=== PATIENT | female | born 1935 | race African-American/Black ===

== ENCOUNTER 2017-11-14 12:10 | Observation (INO) | payer BC, OTHER ==
--- NOTE | 2017-11-14 13:27 | PDOC ---
History of Present Illness - General Chief Complaint: Rectal Bleed Stated Complaint: RECTAL BLEEDING Time Seen by Provider: 11/14/17 12:36 - History of Present Illness Initial Comments: 11/14/17 13:25 Pt is a pleasant 82 y/o lady with a significant past medical of colon cancer, melanoma of her left foot, TIA (April) and HTN who presents this afternoon to [facility] c/o BRBPR that has been present since yesterday evening. Pt endorses 5 episodes of bloody stool along with clots. Pt states that she underwent a right hemicolectomy 4 years ago for colon cancer and underwent a colonoscopy approximately 3 years ago which was normal. Denies chest pain, shortness of breath, dizziness, vomiting, or headache. PMD Dr rAias ([place] NKDA FH- Mother CVA/HTN PSurgHx- Right Hemicolectomy (2013), Tubal ligation, appendectomy, Melanoma removal Social Hx- Denies Tobacco, Alcohol use. Past History - Past Medical History Allergies/Adverse Reactions: Allergies Allergy/AdvReac Type Severity Reaction Status Date / Time No Known Allergies Allergy Verified 11/14/17 12:21 Home Medications: Ambulatory Orders Metoprolol Succinate 50 mg PO DAILY 05/08/15 Aspirin [ASA -] 81 mg PO DAILY 05/09/17 Amlodipine Besylate 10 mg PO DAILY 11/14/17 Losartan/Hydrochlorothiazide [Hyzaar 100-12.5 Tablet] 1 tab PO DAILY 11/14/17 Anemia: No Asthma: No Cancer: Yes ([place], LEFT FOOT MELANOMA) Cardiac Disorders: Yes (HEART MURMUR) CVA: No COPD: No CHF: No Dementia: No Diabetes: No GI Disorders: No Disorders: No HTN: Yes Hypercholesterolemia: Yes Liver Disease: No Seizures: No Thyroid Disease: No - Surgical History Abdominal Surgery: Yes (HEMICOLECTOMY) Appendectomy: No Cardiac Surgery: No Cholecystectomy: No Lung Surgery: No Neurologic Surgery: No Orthopedic Surgery: Yes (LEFT WRIST FX) - Immunization History Immunization Up to Date: Yes - Suicide/Smoking/Psychosocial Hx Smoking Status: No Smoking History: Never smoked Years of Tobacco Use: 0 Have you smoked in the past 12 months: No Number of Cigarettes Smoked Daily: 0 Cigars Per Day: 0 Hx Alcohol Use: No Drug/Substance Use Hx: No Substance Use Type: None Hx Substance Use Treatment: No Review of Systems - Review of Systems Able to Perform ROS?: Yes Is the patient limited Tajik proficient: No Constitutional: No: Symptoms Reported, See HPI, Chills, Diaphoresis, Fever, Loss of Appetite, Malaise, Night Sweats, Weakness, Weight Stable, Unintentional Wgt. Loss, Unexplained wgt Loss, Other ABD/GI: Yes: Blood Streaked Bowels, Rectal Bleeding : No: Symptoms Reported, See HPI, Burning, Dysuria, Discharge, Frequency, Flank Pain, Hematuria, Incontinence, Pain, Urgency, Testicular Mass, Testicular Swelling, Lesions, Testicular Pain, Other Musculoskeletal: No: Symptoms Reported, See HPI, Back Pain, Gout, Joint Pain, Joint Swelling, Muscle Pain, Muscle Weakness, Neck Pain, Joint Stiffness, Other Integumentary: No: Symptoms Reported, See HPI, Bruising, Change in Color, Change in Hair/Nails, Dryness, Erythema, Flushing, Lesions, Lumps, Pallor, Pruritus, Rash, Sweating, Other Neurological: No: Symptoms reported, See HPI, Headache, Numbness, Paresthesia, Pre-Existing Deficit, Seizure, Tingling, Tremors, Weakness, Unsteady Gait, Ataxia, Dizziness, Other Psychiatric: No: Anxiety, Depression, Frequent Crying, Stressors, Sleep Pattern Change, Emotional Problems, Mood Swings, Change in Appetite, Other Endocrine: No: Symptoms Reported, See HPI, Excessive Sweating, Flushing, Intolerance to Cold, Intolerance to Heat, Increased Hunger, Increased Thirst, Increased Urine, Unexplained Weight Gain, Unexplained Weight Loss, Change in Weight, Other Hematologic/Lymphatic: No: Symptoms Reported, See HPI, Anemia, Blood Clots, Easy Bleeding, Easy Bruising, Bleeding Diathesis, Lymph Node Abnormalities, Swollen Glands, Other *Physical Exam - Vital Signs Last Vital Signs Temp Pulse Resp BP Pulse Ox 98.8 F 98 H 18 127/81 99 11/14/17 12:17 11/14/17 12:17 11/14/17 12:17 11/14/17 12:17 11/14/17 12:17 - Physical Exam General Appearance: Yes: Appropriately Dressed, Apparent Distress HEENT: positive: EOMI, NICOLAS, Pale Conjunctivae Neck: positive: Supple Respiratory/Chest: positive: Lungs Clear, Normal Breath Sounds Cardiovascular: positive: Regular Rhythm, Regular Rate, S1, S2 Gastrointestinal/Abdominal: positive: Normal Bowel Sounds, Soft Rectal Exam: positive: heme positive stool (gross blood seen around anus, stool occult sample sent to lab) Integumentary: positive: Pale Neurologic: positive: pastoral assistant II-XII NML intact, Fully Oriented, Alert, Normal Mood/ Affect, Normal Response, Motor Strength 06/28 ED Treatment Course - LABORATORY CBC & Chemistry Diagram: 11/14/17 17:23 11/14/17 13:35 Medical Decision Making - Medical Decision Making 11/14/17 14:10 CBC w/ diff, CMP, Carcinoembryonic Antigen, PT/INR, PTT, Stool occult pending Rectal exam performed by me, dry blood seen around anus and rectum 11/14/17 16:18 Spoke with Semaj, will admit to telemetry. 11/14/17 17:11 Repeat CBC will be done at 6 pm. *DC/Admit/Observation/Transfer Diagnosis at time of Disposition: Rectal bleeding - Referrals - Patient Instructions - Post Discharge Activity
--- NOTE | 2017-11-14 13:48 | PDOC ---
Attending Attestation - Resident Resident Name: Cral Kay - ED Attending Attestation I have performed the following: I have examined & evaluated the patient, The case was reviewed & discussed with the resident, I agree w/resident's findings & plan, Exceptions are as noted - HPI HPI: 11/14/17 13:46 82y F hx of colon ca s/p hemicolectomy, TIA (04/2017), melenoma presents with BRBPR since last night. Pt states that she had approximate 5 episodes of soft brown stool with mixed with blood and blood clots. The patient notes her last episode was right when she got to the ED. Patient endorses 1 episode of lightheadedness during bowel movement last night. She denies any abdominal pain , nausea, vomiting, chest pain, palpitations, current lightheadedness. The patient's had a colonoscopy approximately 1 year ago and endorses having + diverticulosis. pt on baby aspirin GI: Dr. pérez GENERAL: The patient is awake, alert, and fully oriented, Nontoxic - in no acute distress. HEAD: Normocephalic, atraumatic. EYES: extraocular movements intact, sclera anicteric, conjunctiva clear. ENT: Normal voice, Moist mucous membranes. NECK: Normal range of motion, supple LUNGS: Breath sounds equal, clear to auscultation bilaterally. No wheezes, no rhonchi, no rales. HEART: Regular rate and rhythm, normal S1 and S2 without murmur, rub or gallop. ABDOMEN: Soft, nontender, No guarding, no rebound. No CVA tenderness EXTREMITIES: Normal range of motion, no edema. NEUROLOGICAL: No facial assymetry, Normal speech, PSYCH: Normal mood, normal affect. SKIN: Warm, Dry, normal turgor,
[2017-11-14 14:06] LABS: BASO % 0.3 % (0-2.0); EOS % 0.7 % (0-4.5); HEMATOCRIT 36.5 % (32.4-45.2); HEMOGLOBIN 12.3 GM/dL (10.7-15.3); LYMPH % 14.5 % (8-40); MCH 30.3 pg (25.7-33.7); MCHC 33.5 g/dl (32.0-36.0); MEAN CELL VOLUME 90.4 fl (80-96); MONO % 6.1 % (3.8-10.2); NEUT % 78.4 % (42.8-82.8); PLATELET COUNT 213 K/MM3 (134-434); RBC 4.04 M/mm3 (3.60-5.2); RDW 14.7 % (11.6-15.6); WHITE BLOOD COUNT 7.8 K/mm3 (4.0-10.0)
[2017-11-14 15:33] LABS: ALBUMIN 3.7 g/dl (3.4-5.0); ALK PHOS 90 U/L (45-117); ANION GAP 7 MMOL/L (8-16); BILIRUBIN,TOTAL 0.7 mg/dL (0.2-1); BLOOD UREA NITROGEN 21 mg/dL (7-18); CALCIUM 9.8 mg/dL (8.5-10.1); CHLORIDE 110 mmol/L (98-107); CO2 27 mmol/L (21-32); GLUCOSE,RANDOM 65 mg/dL (74-106); POTASSIUM 4.1 mmol/L (3.5-5.1); SGOT/AST 15 U/L (15-37); SGPT/ALT 12 U/L (13-61); SODIUM 145 mmol/L (136-145); TOT PROT 6.8 g/dl (6.4-8.2)
[2017-11-14 16:19] LABS: INR 1.14 (0.83-1.09); PROTHROMBIN TIME (PATIENT) 12.9 SEC (9.7-13.0)
[2017-11-14 16:22] LABS: ACTIVATED PTT 26.8 SECONDS (25.2-36.5)
--- NOTE | 2017-11-14 17:26 | CON.GI ---
Consult Consult Specialty:: GI Referred by:: Hospitalist service Reason for Consultation:: Rectal bleeding - History of Present Illness Chief Complaint: Rectal bleeding History of Present Illness: The patient is an 82 year old female admitted through [facility] ER for evaluation of rectal bleeding. Ms. Santacruz states that she was in her USOH up until last night , when she began experiencing episodes of rectal bleeding through the night. She described the bleeding to be bright red initially and believes that she also passed clots. Her last active bloody bowel movement was around 10-11 AM this morning, which she describes as forceful. It was associated with lightheadedness as well. She live in [facility] but decided to have her daughter in law drive her to [facility]. Triage vitals revealed T: 98 P: 98 BP: /127/ 81. She does take metroporlol and her usual SBP is in the 160's-170's, higher at times. Along with the rectal bleeding, she denied associated nausea, vomiting, abdominal pain, fevers/chills, antecedent change in bowel habits. There has been no overt bleeding since the morning. Ms. Santacruz has a history of colon cancer. 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 She subsequently underwent right hemicolectomy 04/29/13. 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 The stage was pT1N0 (out of 26)M: N/A. She underwent surveillance colonoscopy performed by myself 05/09/15 that revealed a good bowel prep, mild diverticulosis of the distal colon, moderate diverticulosis of the proximal colon and a patent ileocolonic surgical anatamosisin the proximal half of the colon. Biopsies of the anastamosis were unrevealing and the neoterminal ileum appeared normal. Small internal hemorrhoids were noted as well and a 3 year follow-up exam was advised. She also underwent endoscopic ultrasound around that time performed by Dr. Nadia Amaya for evaluation of small submucosal fundic nodules seen on prior upper endoscopy. I do not have the records regarding this as that was when I was working in my old office. Ms. Santacruz does tell me that she was told " everything was ok" and that she had a hiatal hernia. She was on Plavix along with ASA 81mg once daily from 3/18-08/11 secondary to TIA however is now maintained on just ASA 81mg once daily. 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 currently on ASA 81mg once daily) Cardio/Vascular: Yes: HTN Dermatology: Yes: Melanoma (? left foot) - Past Surgical History Additional Surgical History: Thymus gland removal (benign), breast biopy (benign ), uterine prolapse repair, left wrist fracture, BTL, excision of melanoma on ? 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 Place of : [facility] History of Recent Travel: No Home Medications - Allergies Allergies/Adverse Reactions: Allergies Allergy/AdvReac Type Severity Reaction Status Date / Time No Known Allergies Allergy Verified 11/14/17 12:21 - Home Medications Home Medications: Ambulatory Orders Metoprolol Succinate 100 mg PO DAILY 05/08/15 Aspirin [ASA -] 81 mg PO DAILY 05/09/17 Amlodipine Besylate 10 mg PO DAILY 11/14/17 Losartan Potassium 0 mg PO DAILY 11/14/17 Family Disease History - Family Disease History Family Disease History: Other: Father ( 61: COPD), Mother (: 72: CVA / HTN), Brother (1, : Liver cancer (was an alcoholic)), Sister (1, , HCV cirrhosis), Son (1, healthy), Daughter (1, healthy) Other Family History: No family history of colorectal cancer or other GI malignancy Review of Systems - Review of Systems Constitutional: denies: Chills, Unintentional Wgt. Loss Cardiovascular: denies: Chest Pain Respiratory: denies: SOB Gastrointestinal: reports: Rectal Bleeding. denies: Abdominal Pain, Bloating, Constipation, Diarrhea, Dysphagia, Indigestion, Melena, Vomiting, Vomiting Blood Physical Exam-GI Vital Signs: Vital Signs at Bedside Temperature Not taken 11/14/17 16:45 Pulse Rate 63 11/14/17 16:45 Respiratory Rate 18 11/14/17 16:45 Blood Pressure 143/70 11/14/17 16:45 O2 Sat by Pulse Oximetry (%) 99 11/14/17 16:45 Constitutional: Yes: No Distress, Calm Eyes: Yes: Other (+ arcus senilis). No: Sclera Icterus Cardiovascular: Yes: Regular Rate and Rhythm, Murmur (faint systolic murmur at the LSB) Respiratory: Yes: CTA Bilaterally Gastrointestinal Inspection: Yes: Scars (+ pelvic surgical scar). No: Distention ...Auscultate: Yes: Normoactive Bowel Sounds ...Palpate: No: Hepatomegaly, Splenomegaly, Tenderness ...Percussion: No: Tympanitic ...Rectal Exam: Yes: Other (No external lesions, no masses, scant blood on fingertip with some scant light brown stool) Edema: No (No LE edema) Neurological: Yes: Alert, Oriented Labs: CBC, BMP 11/14/17 13:30 11/14/17 13:35 INR, PTT INR 1.14 (0.83-1.09) H 11/14/17 13:30 Hepatic Panel Total Bilirubin 0.7 mg/dL (0.2-1) 11/14/17 13:35 AST 15 U/L (15-37) 11/14/17 13:35 ALT 12 U/L (13-61) L 11/14/17 13:35 Alkaline Phosphatase 90 U/L (45-117) 11/14/17 13:35 Albumin 3.7 g/dl (3.4-5.0) 11/14/17 13:35 INR, PTT INR 1.14 (0.83-1.09) H 11/14/17 13:30 Problem List - Problems (1) Hematochezia Assessment/Plan: Painless rectal bleeding. By history of passage of clots along with BRBPR, diverticular hemorrhage remains higher in the differential. She had recent surveillance colonoscopy in 2016 so while recurrent colon cancer is possible, it is lower in my differential as would bleeding anastamotic vessel. By stable hemodynamics I do not suspect this to be an atypical presentation of an upper GI bleed. I have advised the following for now: NPO: OK for meds with small sips water IV hydration Monitor H/H q 8 hours If no overt bleeding ovenight, ok to trial clears in the AM. Monitored setting. If overt bleeding and change in hemodyamics, transfer to ICU setting Plan for EGD/Colon on friday, sooner if clinically indicated Code(s): K92.1 - MELENA
[2017-11-14 17:37] LABS: HEMATOCRIT 33.2 % (32.4-45.2); HEMOGLOBIN 11.1 GM/dL (10.7-15.3); MCH 30.3 pg (25.7-33.7); MCHC 33.6 g/dl (32.0-36.0); MEAN CELL VOLUME 90.2 fl (80-96); MEAN PLT VOLUME 8.7 fl (7.5-11.1); PLATELET COUNT 214 K/MM3 (134-434); RBC 3.67 M/mm3 (3.60-5.2); RDW 14.6 % (11.6-15.6); WHITE BLOOD COUNT 7.2 K/mm3 (4.0-10.0)
--- NOTE | 2017-11-14 17:43 | HP ---
CHIEF COMPLAINT: rectal bleed PCP: Dr. Arias [phone] GI: Dr. 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 Pt has been having bloody diarrhea beginning around 3 am last night. She also admits to 1 episode of dizziness around 11 am after having a bowel movement, which resolved 5-15min later. She has no other complaints. She denies other bleeding, pain, headache, nausea, vomiting, fever, chills. Pt had a recent colonoscopy which showed divirticulosis and internal hemorrhoids. Pt states she had a CVA in April. Confusion b/n pt and family about whether it was a TIA or CVA. Pt mentions there was a "bleed" but was placed on Plavix following, so it is unclear if the event was indeed hemorrhagic. Note: Medications reconciled with [facility] in [facility] ER course was notable for: (1) Hb 7.8 -> 7.5 (2) D5 1/2 NS (3) Recent Travel: denies PAST MEDICAL HISTORY: HTN, Colon CA (detailed history in Dr. 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 , melanoma L plantar foot in 2015 PAST SURGICAL HISTORY: Thymectomy (benign thymus tumor), L wrist surgery, hemicolectomy Social History: Smoking: never smoker Alcohol: never drinker Drugs: denies Family History: Liver CA, liver sclerosis, HTN, divirticulosis Allergies No Known Allergies Allergy (Verified 11/14/17 12:21) HOME MEDICATIONS: Home Medications Medication Instructions Recorded Metoprolol Succinate 50 mg PO DAILY 05/08/15 Aspirin [ASA -] 81 mg PO DAILY 05/09/17 Amlodipine Besylate 10 mg PO DAILY 11/14/17 Losartan/Hydrochlorothiazide 1 tab PO DAILY 11/14/17 [Hyzaar 100-12.5 Tablet] REVIEW OF SYSTEMS CONSTITUTIONAL: Absent: fever, chills, diaphoresis, generalized weakness, malaise, loss of appetite, weight change HEENT: Absent: rhinorrhea, nasal congestion, throat pain, throat swelling, difficulty swallowing, mouth swelling, ear pain, eye pain, visual changes CARDIOVASCULAR: Absent: chest pain, syncope, palpitations, irregular heart rate, lightheadedness , peripheral edema RESPIRATORY: Absent: cough, shortness of breath, dyspnea with exertion, orthopnea, wheezing, stridor, hemoptysis GASTROINTESTINAL: grossly bloody diarrhea Absent: abdominal pain, abdominal distension, nausea, vomiting, , constipation, melena, hematochezia GENITOURINARY: Absent: dysuria, frequency, urgency, hesitancy, hematuria, flank pain, genital pain MUSCULOSKELETAL: Absent: myalgia, arthralgia, joint swelling, back pain, neck pain SKIN: Absent: rash, itching, pallor HEMATOLOGIC/IMMUNOLOGIC: Absent: easy bleeding, easy bruising, lymphadenopathy, frequent infections ENDOCRINE: Absent: unexplained weight gain, unexplained weight loss, heat intolerance, cold intolerance NEUROLOGIC: Absent: headache, focal weakness or paresthesias, dizziness, unsteady gait, seizure, mental status changes, bladder or bowel incontinence PSYCHIATRIC: Absent: anxiety, depression, suicidal or homicidal ideation, hallucinations. PHYSICAL EXAMINATION Vital Signs - 24 hr 11/14/17 12:17 Temperature 98.8 F Pulse Rate 98 H Respiratory 18 Rate Blood Pressure 127/81 O2 Sat by Pulse 99 Oximetry (%) Gen: Comfortable, NAD, AAO x3 HEENT: NCAT, PERRLA, EOMI, moist membranes Neck: supple, no jvd, no bruits, no thyromegally Cardio: normal s1s2, rrr, no murmurs detected Pulm: CTA, b/l, no rales/ronchi Abd: nondistended, normoactive bowel sounds, soft, nontender, rectal exam performed by ED resident and by GI just prior to my exam reportedly revealed gita blood Ext: no edema, 2+ pulses Neuro: mild slurring of speech. No facial droop. CN 2-12 intact. Strength 5/5 in b/l UE and b/l LE. Sensation intact throughout. Laboratory Results - last 24 hr 11/14/17 11/14/17 11/14/17 13:30 13:30 13:30 WBC 7.8 RBC 4.04 Hgb 12.3 Hct 36.5 MCV 90.4 MCH 30.3 MCHC 33.5 RDW 14.7 Plt Count 213 MPV 9.0 Absolute Neuts (auto) 6.1 Neutrophils % 78.4 D Lymphocytes % 14.5 D Monocytes % 6.1 Eosinophils % 0.7 D Basophils % 0.3 Nucleated RBC % 0 PT with INR 12.90 INR 1.14 H PTT (Actin FS) 26.8 Sodium Potassium Chloride Carbon Dioxide Anion Gap BUN Creatinine Creat Clearance w eGFR Random Glucose Calcium Total Bilirubin AST ALT Alkaline Phosphatase Total Protein Albumin Carcinoembryonic Ag Cancelled Stool Occult Blood Blood Type Antibody Screen 11/14/17 11/14/17 11/14/17 13:30 13:35 13:54 WBC RBC Hgb Hct MCV MCH MCHC RDW Plt Count MPV Absolute Neuts (auto) Neutrophils % Lymphocytes % Monocytes % Eosinophils % Basophils % Nucleated RBC % PT with INR INR PTT (Actin FS) Sodium 145 Potassium 4.1 Chloride 110 H Carbon Dioxide 27 Anion Gap 7 L BUN 21 H Creatinine 1.0 Creat Clearance w eGFR 53.21 Random Glucose 65 L Calcium 9.8 Total Bilirubin 0.7 AST 15 ALT 12 L Alkaline Phosphatase 90 Total Protein 6.8 Albumin 3.7 Carcinoembryonic Ag Stool Occult Blood Positive Blood Type O POSITIVE Antibody Screen Negative ASSESSMENT/PLAN: Pt is an 82 y/o F with PMH Colon CA, Divirticulosis, internal hemorrhoids, CVA who presented to ED with complaint of multiple episodes of bloody BM overnight. #GIB -5 episodes. last episode at 11 am -gita blood on RADAMES. -hist colon CA and divirticulosis noted -low suspicion for upper GIB -Hb 7.8 -> 7.6 -f/u CBC in am -NPO except meds -hydration D5 1/2NS -GI consult. Plan for scope on Mon #HTN -holding antihypertensives except Beta katiana for now -BP controlled at the moment #CVA -residual slurred speech -holding ASA in setting of GIB #FEN -D5 1/2NS -lytes wnl -NPO except meds #PPx -no AC in setting of GIB #Dispo -Tele/Obs Carl Segura MD PGY-2 IM Visit type - Emergency Visit Emergency Visit: Yes ED Registration Date: 11/14/17 Care time: The patient presented to the Emergency Department on the above date and was hospitalized for further evaluation of their emergent condition. - New Patient This patient is new to me today: Yes Date on this admission: 11/14/17 - Critical Care Critical Care patient: No Hospitalist Screening - Colonoscopy Questionnaire Colonoscopy Questionnaire: Colonoscopy Questionnaire - Patient: 50 - 75 years old and never had a screening colonoscopy: Unknown History of colon or rectal polyps, or CA: Yes History of IBD, Crohn's disease or UC: Unknown History of abdominal radiation therapy as a child: Unknown - Relative: 1 with colon or rectal CA, or polyps at age 60 or younger: Unknown Colon or rectal CA diagnosed at age 45 or younger: Unknown Multiple relatives with colon or rectal CA: Unknown - Outcome: Screening Result: Positive Screen
[2017-11-14] MEDS ORDERED: DEXTROSE 5%-0.45% SALINE 1,000 ML IV SCH (17:45)
--- NOTE | 2017-11-14 18:45 | PN ---
Teaching Attending Note Name of Resident: Carl Segura ATTENDING PHYSICIAN STATEMENT I saw and evaluated the patient. I reviewed the resident's note and discussed the case with the resident. I agree with the resident's findings and plan as documented. SUBJECTIVE:82yo F with PMH colon ca s/p R hemicolectomy no Rtx or chemo in 2013 , CVA with residual slurred speech, HTN, diverticulosis, 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 states it was gross blood and with some clots passage. +straining states her last BM was brown with no blood and has not had any BM since arrival to the ER. states she had no other symptoms assoc with the episodes. had episodes in the past when she was diagnosed with colon cancer. dnies CP, SOB, fever, chills, N/V /C/D. last colonoscopy was 2015 done routinely and was negative for malignancy. took her medications this morning OBJECTIVE: Last Vital Signs Temp Pulse Resp BP Pulse Ox 98.2 F 65 17 148/97 98 11/14/17 18:36 11/14/17 18:36 11/14/17 18:36 11/14/17 18:36 11/14/17 18:36 General NAD CV S1 S2 RRR no murmur/rub/gallop Lungs CTA B/L no wheezing/rales/rhonchi Abdomen soft NT/ND Extremities no pedal edema Rectal exam done by ER audit intern showing dried blood. good rectal tone ASSESSMENT AND PLAN: 82yo F with PMH colon ca s/p R hemicolectomy no Rtx or chemo in 2013, CVA with residual slurred speech, HTN, diverticulosis, melanoma of the R foot s/p excision presented to the ER after BRBPR x5 episodes 1. Lower GI bleed- likely diverticular bleed, hemorrhoid or AVM. will start NPO , IVF, trend CBC Q6H. pt is currently hemodynamically stable however is on betablocker. monitor BM to ensure no more bleeding. will need colonoscopy in vs outpatient per GI. GI consulted. hold asa 2. HTN- will hold antihypertensives at this time. will cont betablocker 3. CVA- hold asa 4. DVT ppx- SCD 5. spoke with family present at bedside. Patients sister is tomorrow afternoon and would like to leave in order to attend. Informed her will need to monitor overnight and can consider d/c if remains stable. Her and daughter agrees to f/u with GI on Friday for outpatient colonoscopy. Will discuss family matters with GI in the AM to see if possible to allow outpatient follow up if remains stable.
[2017-11-14 21:05] VITALS: BMI 27.9
[2017-11-15 06:15] LABS: BASO % 0.5 % (0-2.0); EOS % 2.4 % (0-4.5); HEMATOCRIT 27.8 % (32.4-45.2); HEMOGLOBIN 9.3 GM/dL (10.7-15.3); MCH 30.2 pg (25.7-33.7); MCHC 33.5 g/dl (32.0-36.0); MEAN CELL VOLUME 90.1 fl (80-96); MONO % 9.7 % (3.8-10.2); NEUT % 52.4 % (42.8-82.8); PLATELET COUNT 170 K/MM3 (134-434); RBC 3.08 M/mm3 (3.60-5.2); RDW 14.3 % (11.6-15.6); WHITE BLOOD COUNT 5.5 K/mm3 (4.0-10.0)
[2017-11-15 06:24] VITALS: PULSE 64; TEMP 98.1
[2017-11-15 08:46] VITALS: BP 151/87
--- NOTE | 2017-11-15 09:28 | DS ---
Physical Exam: SUBJECTIVE: Patient seen and examined. lightheaded on standing this AM but no repeat episodes. had BM last night which was normal in color no blood appreciated. denies CP, SOB< fever, chills, N/V/C/D, melena, BBRPR OBJECTIVE: Vital Signs Period Temp Pulse Resp BP Sys/Cordon Pulse Ox Last 24 Hr 97.8 F-98.8 F 60-98 17-20 126-151/71-97 98-99 PHYSICAL EXAM GENERAL: The patient is awake, alert, and fully oriented, in no acute distress. HEAD: Normal with no signs of trauma. EYES: PERRL, extraocular movements intact, sclera anicteric, conjunctiva clear. ENT: Ears normal, nares patent, oropharynx clear without exudates, moist mucous membranes. NECK: Trachea midline, full range of motion, supple. LUNGS: Breath sounds equal, clear to auscultation bilaterally, no wheezes, no crackles, no accessory muscle use. HEART: Regular rate and rhythm, S1, S2 without murmur, rub or gallop. ABDOMEN: Soft, nontender, nondistended, normoactive bowel sounds, no guarding, no rebound, no hepatosplenomegaly, no masses. EXTREMITIES: 2+ pulses, warm, well-perfused, no edema. NEUROLOGICAL: Cranial nerves II through XII grossly intact. Normal speech, gait not observed. PSYCH: Normal mood, normal affect. SKIN: Warm, dry, normal turgor, no rashes or lesions noted. LABS Laboratory Results - last 24 hr 11/14/17 11/14/17 11/14/17 13:30 13:30 13:30 WBC 7.8 RBC 4.04 Hgb 12.3 Hct 36.5 MCV 90.4 MCH 30.3 MCHC 33.5 RDW 14.7 Plt Count 213 MPV 9.0 Absolute Neuts (auto) 6.1 Neutrophils % 78.4 D Lymphocytes % 14.5 D Monocytes % 6.1 Eosinophils % 0.7 D Basophils % 0.3 Nucleated RBC % 0 PT with INR 12.90 INR 1.14 H PTT (Actin FS) 26.8 Sodium Potassium Chloride Carbon Dioxide Anion Gap BUN Creatinine Creat Clearance w eGFR Random Glucose Calcium Total Bilirubin AST ALT Alkaline Phosphatase Total Protein Albumin Carcinoembryonic Ag Cancelled Stool Occult Blood Blood Type Antibody Screen 11/14/17 11/14/17 11/14/17 13:30 13:35 13:54 WBC RBC Hgb Hct MCV MCH MCHC RDW Plt Count MPV Absolute Neuts (auto) Neutrophils % Lymphocytes % Monocytes % Eosinophils % Basophils % Nucleated RBC % PT with INR INR PTT (Actin FS) Sodium 145 Potassium 4.1 Chloride 110 H Carbon Dioxide 27 Anion Gap 7 L BUN 21 H Creatinine 1.0 Creat Clearance w eGFR 53.21 Random Glucose 65 L Calcium 9.8 Total Bilirubin 0.7 AST 15 ALT 12 L Alkaline Phosphatase 90 Total Protein 6.8 Albumin 3.7 Carcinoembryonic Ag Stool Occult Blood Positive Blood Type O POSITIVE Antibody Screen Negative 11/14/17 11/14/17 11/15/17 17:23 20:15 05:30 WBC 7.2 5.5 RBC 3.67 3.08 L Hgb 11.1 9.3 L Hct 33.2 27.8 L D MCV 90.2 90.1 MCH 30.3 30.2 MCHC 33.6 33.5 RDW 14.6 14.3 Plt Count 214 170 D MPV 8.7 9.0 Absolute Neuts (auto) 2.9 Neutrophils % 52.4 D Lymphocytes % 35.0 D Monocytes % 9.7 Eosinophils % 2.4 D Basophils % 0.5 Nucleated RBC % 0 PT with INR INR PTT (Actin FS) 31.9 Sodium Potassium Chloride Carbon Dioxide Anion Gap BUN Creatinine Creat Clearance w eGFR Random Glucose Calcium Total Bilirubin AST ALT Alkaline Phosphatase Total Protein Albumin Carcinoembryonic Ag Stool Occult Blood Blood Type Antibody Screen HOSPITAL COURSE: Date of Admission:11/14/17 Date of Discharge: 11/15/17 ADmitting Diagnosis: Lower GI bleed Pre hospital course 82yo F with PMH colon ca s/p R hemicolectomy no Rtx or chemo in 2013, CVA with residual slurred speech, HTN, diverticulosis, 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 states it was gross blood and with some clots passage. +straining states her last BM was brown with no blood and has not had any BM since arrival to the ER. states she had no other symptoms assoc with the episodes. had episodes in the past when she was diagnosed with colon cancer. dnies CP, SOB, fever, chills, N/V /C/D. last colonoscopy was 2016 done routinely and was negative for malignancy. took her medications this morning Subsequent hospital course Observed on tele overnight. hemodynamically remained stable. Hgb continued to trend down in absence of active bleeding noted. in the Morning patient expressed desire to sign out AMA in order to attend her sisters . Explained risks assoc with leaving including LOC, cardiac arrest, massive GI bleeding and . verbalized understanding of risks with daughter present who did the same. Encouraged patient to return if becomes lightheaded or starts noticing bleeding in her stools. encouraged patient to return to the hospital after the event in order to obtain treatment. verbalized understanding and agreement. Minutes to complete discharge: 40 Discharge Summary Reason For Visit: RECTAL HEMORRHAGE Current Active Problems Rectal bleeding (Acute) - Instructions Referrals: Jimmy Arias [Primary Care Provider] - - Home Medications Comprehensive Discharge Medication List: Ambulatory Orders Metoprolol Succinate 50 mg PO DAILY 05/08/15 Aspirin [ASA -] 81 mg PO DAILY 05/09/17 Amlodipine Besylate 10 mg PO DAILY 11/14/17 Losartan/Hydrochlorothiazide [Hyzaar 100-12.5 Tablet] 1 tab PO DAILY 11/14/17 This patient is new to me today: Yes Date on this admission: 11/15/17 Emergency Visit: No Critical Care patient: No - Discharge Referral Referred to [facility] Med [facility] Yes Physician Referral: Tra Geller DO (GI)
--- NOTE | 2017-11-15 09:33 | PN ---
Progress Note (short form) - Note Progress Note: patient signed out AMA this morning prior to my reevaluation Problem List - Problems (1) Rectal bleeding Code(s): K62.5 - HEMORRHAGE OF ANUS AND RECTUM
[2017-11-15] MEDS ORDERED: FLU VACCINE QUAD 60 MCG/0.5 ML (MDV 18-19) IM ONE (10:00)
[2017-11-15 10:07] LABS: ANION GAP 7 MMOL/L (8-16); BLOOD UREA NITROGEN 19 mg/dL (7-18); CALCIUM 8.3 mg/dL (8.5-10.1); CHLORIDE 112 mmol/L (98-107); CO2 27 mmol/L (21-32); CREATININE 0.9 mg/dL (0.55-1.3); GLUCOSE,RANDOM 88 mg/dL (74-106); POTASSIUM 3.8 mmol/L (3.5-5.1); SODIUM 146 mmol/L (136-145)
== END 2017-11-15 09:54 | disposition left against medical advice (07) ==
LOC: JER 12:10 → JERBED 17:09 → J4W 18:54
PROVIDERS: ADMIT Internal Medicine; ATTEND Internal Medicine
PROC: 3E0337Z Introduction of Electrolytic and Water Balance Substance into Peripheral Vein, Percutaneous Approach (ICD-10-PCS; principal; 2017-11-14)
DX: K62.5 Hemorrhage of anus and rectum (principal); K64.8 Other hemorrhoids; D64.9 Anemia, unspecified; K57.30 Diverticulosis of large intestine without perforation or abscess without bleeding; I10 Essential (primary) hypertension; I69.828 Other speech and language deficits following other cerebrovascular disease; Z85.038 Personal history of other malignant neoplasm of large intestine; Z85.820 Personal history of malignant melanoma of skin
CPT/HCPCS: 36415; 80048; 80053; 82272; 85025; 85027; 85610; 85730; 86850; 86900; 86901; 99284-25; G0378

== ENCOUNTER 2017-11-15 14:35 | Inpatient (IN) | payer BC, OTHER ==
--- NOTE | 2017-11-15 15:15 | PDOC ---
History of Present Illness - General History Source: Patient Exam Limitations: No Limitations <Marisol Li - Last Filed: 11/15/17 15:52> - History of Present Illness Initial Comments: 11/15/17 16:08 Pt is a pleasant 82 y/o lady with a significant past medical of colon cancer, melanoma of her left foot, TIA (April) and HTN who presents this afternoon to [facility] c/o BRBPR that has been present since evening. Pt endorses 5 episodes of bloody stool along with clots. Pt states that she underwent a right hemicolectomy 4 years ago for colon cancer and underwent a colonoscopy in April of 2015 (revealed " mild diverticulosis of the distal colon , moderate diverticulosis of the proximal colon and a patent ileocolonic surgical anatamosisin the proximal half of the colon"). Pt was admitted yesterday morning for rectal bleeding however signed out AMA because she wanted to attend her sister's this morning. Denies chest pain, shortness of breath, dizziness, vomiting, or headache. PMD Dr Arias ([place]) NKDA FH- Mother CVA/HTN PSurgHx- Right Hemicolectomy (2013), Tubal ligation, appendectomy, Melanoma removal Social Hx- Denies Tobacco, Alcohol use. 11/15/17 16:12 <Carl Kay - Last Filed: 11/15/17 18:14> - General Chief Complaint: Rectal Bleed Stated Complaint: RECTAL BLEEDING Time Seen by Provider: 11/15/17 15:07 Past History <Marisol Li - Last Filed: 11/15/17 15:52> - Past Medical History Anemia: No Asthma: No Cancer: Yes (CE[place]ASS, LEFT FOOT MELANOMA) Cardiac Disorders: Yes (HEART MURMUR) CVA: No COPD: No CHF: No Dementia: No Diabetes: No GI Disorders: Yes (Diverticulitis) Disorders: No HTN: Yes Hypercholesterolemia: Yes Liver Disease: No Seizures: No Thyroid Disease: No - Surgical History Abdominal Surgery: Yes (HEMICOLECTOMY) Appendectomy: No Cardiac Surgery: No Cholecystectomy: No Lung Surgery: No Neurologic Surgery: No Orthopedic Surgery: Yes (LEFT WRIST FX) - Immunization History Immunization Up to Date: Yes - Suicide/Smoking/Psychosocial Hx Smoking Status: No Smoking History: Never smoked Years of Tobacco Use: 0 Have you smoked in the past 12 months: No Number of Cigarettes Smoked Daily: 0 Cigars Per Day: 0 Hx Alcohol Use: No Drug/Substance Use Hx: No Substance Use Type: None Hx Substance Use Treatment: No <Carl Kay - Last Filed: 11/15/17 18:14> - Past Medical History Allergies/Adverse Reactions: Allergies Allergy/AdvReac Type Severity Reaction Status Date / Time No Known Allergies Allergy Verified 11/15/17 15:00 Home Medications: Ambulatory Orders Metoprolol Succinate 50 mg PO DAILY 05/08/15 Review of Systems - Review of Systems Able to Perform ROS?: Yes Is the patient limited Italian proficient: No Constitutional: Yes: See HPI ABD/GI: Yes: Blood Streaked Bowels, Rectal Bleeding, Tarry Stools <Carl Kay - Last Filed: 11/15/17 18:14> *Physical Exam - Vital Signs Last Vital Signs Temp Pulse Resp BP Pulse Ox 98.8 F 79 16 121/67 99 11/15/17 15:00 11/15/17 15:00 11/15/17 15:00 11/15/17 15:00 11/15/17 15:00 <Marisol Li - Last Filed: 11/15/17 15:52> - Vital Signs Last Vital Signs Temp Pulse Resp BP Pulse Ox 98.8 F 79 16 121/67 99 11/15/17 15:00 11/15/17 15:00 11/15/17 15:00 11/15/17 15:00 11/15/17 15:00 - Physical Exam General Appearance: Yes: Appropriately Dressed (aaoX3) HEENT: positive: EOMI, NICOLAS, Normal ENT Inspection, Pale Conjunctivae Neck: positive: Supple Respiratory/Chest: positive: Lungs Clear, Normal Breath Sounds Cardiovascular: positive: Regular Rhythm, Regular Rate, S1, S2 Gastrointestinal/Abdominal: positive: Decreased BS Rectal Exam: positive: other (Rectal Exam performed by hospitalist team today, gita blood observed around anus) Extremity: positive: Normal Inspection, Normal Range of Motion Neurologic: positive: baker operator automatic II-XII NML intact, Fully Oriented, Alert, Normal Mood/ Affect, Motor Strength 5/5 <Carl Kay - Last Filed: 11/15/17 18:14> ED Treatment Course - LABORATORY CBC & Chemistry Diagram: 11/15/17 15:25 11/15/17 15:25 - ADDITIONAL ORDERS Additional order review: 11/15/17 15:25 RBC 3.26 L MCV 90.9 MCHC 34.0 RDW 14.5 MPV 9.0 <Marisol Li - Last Filed: 11/15/17 15:52> - LABORATORY CBC & Chemistry Diagram: 11/15/17 15:25 11/15/17 15:25 <Carl Kay - Last Filed: 11/15/17 18:14> Medical Decision Making - Medical Decision Making 11/15/17 16:15 CBC, CMP, Stool occult, Pt/INR, aPTT, Protonix 40 mg IVPUSH 11/15/17 17:14 Hgb 10.1 today, 9.3 yesterday. Continue to trend on floors. <Carl Kay - Last Filed: 11/15/17 18:14> *DC/Admit/Observation/Transfer - Discharge Dispostion Decision to Admit order: Yes Decision to Admit order Date/Time: Decision to Admit Order Category Date Time Status Decision to Admit to Hospital Routine Admission 11/15/17 15:51 Active <Marisol Li - Last Filed: 11/15/17 15:52> <Carl Kay - Last Filed: 11/15/17 18:14> Diagnosis at time of Disposition: Rectal bleeding - Discharge Dispostion Condition at time of disposition: Good
[2017-11-15] MEDS ORDERED: DEXTROSE 5%-0.45% SALINE 1,000 ML IV SCH ×2 (15:30→17:57)
[2017-11-15 15:38] LABS: HEMATOCRIT 29.6 % (32.4-45.2); HEMOGLOBIN 10.1 GM/dL (10.7-15.3); MCH 30.9 pg (25.7-33.7); MEAN CELL VOLUME 90.9 fl (80-96); PLATELET COUNT 215 K/MM3 (134-434); RBC 3.26 M/mm3 (3.60-5.2); RDW 14.5 % (11.6-15.6); WHITE BLOOD COUNT 7.5 K/mm3 (4.0-10.0)
--- NOTE | 2017-11-15 15:51 | PDOC ---
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 initially wiht large blood clots per rectum, now upon wiping. +dizziness - Physicial Exam PE: 11/15/17 16:59 NAD, well appearing, MMM, mildly pale conjunctiva, anicteric; neck supple. lungs clear, RRR, abdomen soft nontender. PALACIOS x4. No peripheral edema. normal color for ethnicity, [facility]. 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 initially wiht large blood clots per rectum, now upon wiping. +dizziness DDx. GIB, PUD, diverticular bleed, AVM, colonic malignancy. electrolyte/ metabolic derangements. Vital signs reviewed, wnl. Prior notes reviewed, including admissions, discharges and consultations. laboratory results and imaging reviewed, basic labs and lytes wnl EKG normal sinus rhythm, no interval abnormalities, wide QRS, ST and T wave segments and morphology normal. Nonspecific T wave abnormalities with TWI in inferior and anterior/septal leads, RBBB, which is old compared to prior EKGs. TxS from yesterday available, O neg. H/H stable compared to yesterday guaiac positive as expected. continues to have small amounts of lower GIB Protonix IV x1, UGIB vs LGIB, more likely lower with presentation. Admit for rectal bleeding, GI consult and EGD/colonoscopy eval for source of bleeding. Discussed results and management plan with pt and family member at bedside, agree with impression and plan 11/15/17 17:00 Heart Score/ECG Review - ECG Impressions Comment:: 11/15/17 17:07 EKG normal sinus rhythm, no interval abnormalities, wide QRS, ST and T wave segments and morphology normal. Nonspecific T wave abnormalities with TWI in inferior and anterior/septal leads, RBBB, which is old compared to prior EKGs.
[2017-11-15] MEDS ORDERED: PANTOPRAZOLE SODIUM 40 MG VIAL IVPUSH ONE (15:54)
[2017-11-15 15:59] LABS: INR 1.17 (0.83-1.09); PROTHROMBIN TIME (PATIENT) 13.2 SEC (9.7-13.0)
[2017-11-15 16:02] LABS: ACTIVATED PTT 33.4 SECONDS (25.2-36.5)
[2017-11-15] MEDS ORDERED: PANTOPRAZOLE SODIUM 40 MG/100 ML BAG IVPB ONE (16:03)
--- NOTE | 2017-11-15 16:51 | HP ---
CHIEF COMPLAINT: Bright red blood per rectum PCP: Jimmy Jeter HISTORY OF PRESENT ILLNESS: Patient is an 82 year old female with history significant for colon cancer s/p right hemicolectomy in 2013, diverticulosis, internal hemorrhoids, recently admitted for bright red blood per rectum but signed out AMA to attend a , presents to continue workup of the rectal bleeding. She endorses 4-5 painless soft stools that turned liquidy with jonathan red blood noted in the toilet bowl that occurred evening. While sitting on the toilet bowl, she admitted feeling lightheaded with generalized weakness, however denies fall, loss of consciousness, or trauma to the head. She has not had any bowel movements since then. Since her hemicolectomy in 2013, she denies any episodes of BRBPR until this past . Normally she has approx. two bowel movements per day, usually after a meal. She admits she was NPO Friday, in anticipation of a colonoscopy to identify source of bleeding. Since she left the hospital, she admits eating only one scrambled egg, with two spoons of pasta. She admits that when she urinated today, there was scant blood when she wiped herself afterwards. Today, she denies headache, lightheadedness, falls, syncope, change in vision, fevers chills, shortness of breath, chest pain, palpitations, abdominal pain, nausea, vomiting, diarrhea. ER course was notable for: (1) Hb 10.1, Hct 29.6 (2) Positive stool for occult blood (3) 1L D5-1/2NS, Protonix 40mg IV Recent Travel: Denies PAST MEDICAL HISTORY: Colon cancer, diverticulosis, internal hemorrhoids, CVA in April 2017, melanoma of left foot PAST SURGICAL HISTORY: Right hemicolectomy, repair of uterine prolapse, thymectomy, excision of melanoma from plantar aspect left foot. Social History: Smoking: Denies any smoking history Alcohol: Denies any alcohol use Drugs: Denies illicit drug use Family History: Diverticulosis, hypertension Allergies No Known Allergies Allergy (Verified 11/15/17 15:00) HOME MEDICATIONS: Home Medications Medication Instructions Recorded Metoprolol Succinate 50 mg PO DAILY 05/08/15 REVIEW OF SYSTEMS CONSTITUTIONAL: Absent: fever, chills, generalized weakness, malaise, recent unintended weight change HEENT: Absent: change in vision, changes in hearing, tinnitus, difficulty/ pain swallowing. CARDIOVASCULAR: Absent: chest pain, syncopal episodes, palpitations, lightheadedness, peripheral edema in lower extremities. RESPIRATORY: Absent: cough, shortness of breath, orthopnea, wheezing. GASTROINTESTINAL: Absent: abdominal pain, distension, nausea, vomiting, diarrhea. Denies hematochezia, since this past . GENITOURINARY: Absent: dysuria, urinary frequency/ urgency, hesitancy, hematuria, flank pain. SKIN: Absent: rash, pruritis, pallor ENDOCRINE: Absent: unexplained weight gain, or weight loss. NEUROLOGIC: Absent: headache, focal weakness, paresthesias, dizziness, unsteady gait, bowel incontinence PSYCHIATRIC: Absent: anxiety, depression, suicidal or homicidal ideation. PHYSICAL EXAMINATION Vital Signs - 24 hr 11/15/17 11/15/17 15:00 16:07 Temperature 98.8 F Pulse Rate 79 Respiratory 16 Rate Blood Pressure 121/67 O2 Sat by Pulse 99 97 Oximetry (%) GENERAL: Resting comfortably in ED exam bed. Patient is awake, alert, oriented to person, place, time. In no acute distress. HEAD: Normocephalic, atraumatic. EYES: PERRLA, extraocular movements intact b/l. ?Scleral icterus noted medially , b/l, conjunctiva without injection b/l. ENT: Oropharynx clear without exudates, erythema, or lesions. Dry mucous membranes. NECK: Trachea midline. Supple without lymphadenopathy or thyromegaly. LUNGS: Good inspiratory effort. Breath sounds equal, clear to auscultation bilaterally. No wheezes, or rhonchi. No accessory muscle use. HEART: S1, S2 auscultated without murmur, rub or gallop. Regular rate and rhythm. ABDOMEN: Soft, nondistended. Hypoactive bowel sounds auscultated X4 quadrants. No tenderness to light or deep palpation X4 quadrants. No hepatomegaly or splenomegaly appreciated. No rebound tenderness. No guarding. Horizontal old surgical scar noted- clean, non erythematous, non draining. RECTAL: Good anal sphincter tone. No external hemorrhoids noted. No stool within rectal vault. Jonathan red blood coating entire gloved finger noted. EXTREMITIES: 2+ radial and dorsalis pedis pulses b/l. Warm. No lower extremity edema b/l. No calf tenderness. NEUROLOGICAL: Cranial nerves II through XII grossly intact. Strength 5/5 b/l upper extremities in flexion, extension, abduction, adduction. Strength 5/5 b/l lower extremities in hip flexion, extension, and knee flexion, extension. Plantarflexion and dorsiflexion 5/5 b/l. PSYCH: Appropriate mood and affect upon my encounter today. SKIN: Warm, dry. No bruising, rashes, or lesions noted. Laboratory Results - last 24 hr 11/15/17 11/15/17 11/15/17 15:25 15:25 15:25 WBC 7.5 RBC 3.26 L Hgb 10.1 L Hct 29.6 L MCV 90.9 MCH 30.9 MCHC 34.0 RDW 14.5 Plt Count 215 D MPV 9.0 PT with INR 13.20 H INR 1.17 H PTT (Actin FS) 33.4 Sodium Cancelled Potassium Cancelled Chloride Cancelled Carbon Dioxide Cancelled Anion Gap Cancelled BUN Cancelled Creatinine Cancelled Creat Clearance w eGFR Cancelled Random Glucose Cancelled Calcium Cancelled Total Bilirubin Cancelled AST Cancelled ALT Cancelled Alkaline Phosphatase Cancelled Total Protein Cancelled Albumin Cancelled Stool Occult Blood 11/15/17 16:35 WBC RBC Hgb Hct MCV MCH MCHC RDW Plt Count MPV PT with INR INR PTT (Actin FS) Sodium Potassium Chloride Carbon Dioxide Anion Gap BUN Creatinine Creat Clearance w eGFR Random Glucose Calcium Total Bilirubin AST ALT Alkaline Phosphatase Total Protein Albumin Stool Occult Blood Positive ASSESSMENT/PLAN: Patient is an 82 year old female with history significant for colon cancer s/p right hemicolectomy in 2013, diverticulosis, internal hemorrhoids, recently admitted for bright red blood per rectum but signed out AMA to attend a , presents to continue workup of the rectal bleeding. Bright red blood per rectum -Likely due to diverticulosis, vs internal hemorrhoids. -Patient had last colonoscopy in 2015 which was not significant for cancer, however cannot be ruled out. -Clear liquid diet for now. NPO after midnight. -Follow GI consult (Dr. Geller). Patient will likely require colonoscopy, to confirm the source of bleeding. -Will hold Aspirin Hypertension -Hold home antihypertenisives -Will follow BP closely, and consider reinstating Metoprolol if significant increase. Prolonged QT interval -EKG shows Normal sinus rhythm at 68 beats per minute. Right bundle branch block and t-wave inversions noted, unchanged from prior study in 04/2017. QT434/ QTC 461. -Cardiology consult requested (Dr. Ruiz) FEN -IV normal saline at 75mL/ hour -Electrolytes within normal limits. Will follow CMP, in addition to Hb/ Hct -Clear liquid diet. NPO after midnight Prophylaxis -SCDs b/l lower extremities. No heparin/ lovenox due to active bleeding per rectum. -Pantoprazole 40mg PO daily Disposition -Admit to telemetry for continuous monitoring. - Visit type - Emergency Visit Emergency Visit: Yes ED Registration Date: 11/15/17 Care time: The patient presented to the Emergency Department on the above date and was hospitalized for further evaluation of their emergent condition. - New Patient This patient is new to me today: Yes Date on this admission: 11/16/17 - Critical Care Critical Care patient: No Hospitalist Screening - Colonoscopy Questionnaire Colonoscopy Questionnaire: Colonoscopy Questionnaire - Patient: 50 - 75 years old and never had a screening colonoscopy: Unknown History of colon or rectal polyps, or CA: Unknown History of IBD, Crohn's disease or UC: Unknown History of abdominal radiation therapy as a child: Unknown - Relative: 1 with colon or rectal CA, or polyps at age 60 or younger: Unknown Colon or rectal CA diagnosed at age 45 or younger: Unknown Multiple relatives with colon or rectal CA: Unknown - Outcome: Screening Result: Negative Screen
--- NOTE | 2017-11-15 18:05 | PN ---
Teaching Attending Note Name of Resident: Viral Alvarez ATTENDING PHYSICIAN STATEMENT I saw and evaluated the patient. I reviewed the resident's note and discussed the case with the resident. I agree with the resident's findings and plan as documented. SUBJECTIVE: CC: rectal bleed HPI:82 y/o lady with h/o HTN, diverticulosis,colon cancer s/p resection in 2013 , CVA, melanoma of foot, and recent admission to [facility] on 11/14 for rectal bleed, left AMA this am for her sister's and returned for w/u. since admission yesterday, she did not have any rectal bleed episodes.she wiped herself today after urinating and saw some blood on tissue. has no Abd pain. she was planned for colonoscopy on Friday but had to leave. of note , she had R hemicolectomy in 2013 for colon cancer, with no radiation or chemo. survivance colonoscopy in 2015 showed diverticulosis and internal hemorrhoids. OBJECTIVE: NAD , EOMI, no facial droop. round equal reactive pupils. CV: RRR, no MRG lungs: CATB Ext : no edema , or erythema Abd: soft, ND,ND , NL BS Neuro : EOMI, round equal pupils, tongue at mid line . strength 5/5 in upper nad lwoer extremities proximally and distally. Rectal exam by resident , with Nl hair distribution , and empty vault. brown stool streaks on examiner finger with bright red blood. no masses or hemorrhoids felt EKG : sinus rhythm, RBBB, TWI in inferior leads. No change form EKG in 05/11. QTC 461 ASSESSMENT AND PLAN: 82 y/o lady with h/o HTN, diverticulosis,colon cancer s/p resection in 2013, CVA , melanoma of foot, and recent admission to [facility] on 11/14 for rectal bleed, left AMA this am for her sister's and returned for w/u. 1- Painless rectal bleed: likely diverticular in nature Vs internal hemorrhoids. need to r/o colon cancer. stable Hb now. - clear liquid diet - hold all hypertensives - monitor H&H - GI eval for colo - hold her ASA and any chemical DVT px 2- H/O HTN: Nl BP now. hold all her barber emeds including BB . 3- h/o stroke: hold asa 4- dehydration with hypernatremia and elevated BUN. start 1/2 NS 5- prolonged QTC: avoid any qt prolonging meds SCDs
[2017-11-15 18:30] LABS: ALK PHOS 69 U/L (45-117); ANION GAP 6 MMOL/L (8-16); BILIRUBIN,TOTAL 0.2 mg/dL (0.2-1); BLOOD UREA NITROGEN 26 mg/dL (7-18); CALCIUM 8.8 mg/dL (8.5-10.1); CHLORIDE 111 mmol/L (98-107); CO2 28 mmol/L (21-32); CREATININE 1.1 mg/dL (0.55-1.3); GLUCOSE,RANDOM 95 mg/dL (74-106); POTASSIUM 3.8 mmol/L (3.5-5.1); SGOT/AST 13 U/L (15-37); SGPT/ALT 11 U/L (13-61); SODIUM 145 mmol/L (136-145); TOT PROT 5.6 g/dl (6.4-8.2)
[2017-11-15] MEDS: SODIUM CHLORIDE 0.45% 1,000 ML IV SCH (19:00)
--- NOTE | 2017-11-16 04:26 | PN ---
Progress Note (short form) - Note Progress Note: See consult from 11/14. patient Signed out AMA yesterday to attend Sister's . Planned for colonoscopy friday. H&P describes prolonged QT which will need further evaluation prior to procedure.
[2017-11-16] MEDS ORDERED: PT OWN MED DRAWER 7, Y5N ONE (06:02)
[2017-11-16 07:51] LABS: BASO % 0.4 % (0-2.0); EOS % 3.1 % (0-4.5); HEMATOCRIT 25.1 % (32.4-45.2); HEMOGLOBIN 8.4 GM/dL (10.7-15.3); LYMPH % 38.8 % (8-40); MCH 30.6 pg (25.7-33.7); MCHC 33.6 g/dl (32.0-36.0); MEAN CELL VOLUME 91.1 fl (80-96); MONO % 7.1 % (3.8-10.2); NEUT % 50.6 % (42.8-82.8); PLATELET COUNT 166 K/MM3 (134-434); RBC 2.76 M/mm3 (3.60-5.2); RDW 14.3 % (11.6-15.6); WHITE BLOOD COUNT 6.3 K/mm3 (4.0-10.0)
[2017-11-16 07:57] LABS: INR 1.13 (0.83-1.09); PROTHROMBIN TIME (PATIENT) 12.8 SEC (9.7-13.0)
[2017-11-16 08:23] LABS: ALBUMIN 2.7 g/dl (3.4-5.0); ALK PHOS 63 U/L (45-117); ANION GAP 5 MMOL/L (8-16); BILIRUBIN,TOTAL 0.4 mg/dL (0.2-1); BLOOD UREA NITROGEN 29 mg/dL (7-18); CALCIUM 8.4 mg/dL (8.5-10.1); CHLORIDE 115 mmol/L (98-107); CO2 26 mmol/L (21-32); CREATININE 0.9 mg/dL (0.55-1.3); GLUCOSE,RANDOM 94 mg/dL (74-106); MAGNESIUM 1.9 mg/dL (1.8-2.4); PHOSPHOROUS 3.4 mg/dL (2.5-4.9); POTASSIUM 4.3 mmol/L (3.5-5.1); SGOT/AST 11 U/L (15-37); SGPT/ALT 9 U/L (13-61); SODIUM 147 mmol/L (136-145); TOT PROT 5.2 g/dl (6.4-8.2)
[2017-11-16] MEDS: PANTOPRAZOLE 40 MG TABLET (FP) PO SCH (09:40)
--- NOTE | 2017-11-16 10:07 | PN ---
Teaching Attending Note Name of Resident: Nadia Fitzgerald ATTENDING PHYSICIAN STATEMENT I saw and evaluated the patient. I reviewed the resident's note and discussed the case with the resident. I agree with the resident's findings and plan as documented. SUBJECTIVE: passing clots this morning. no assoc abdominal pain. denies CP, SOB , fever, chills, N/V reported she had BRBPR on RADAMES on admission. 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 Lower GI bleed- likely diverticular bleed, hemorrhoid or AVM. tolerating liquid diet. Hgb trended down this AM. will need to repeat this afternoon and monitor closely. bowel prep today. plan for EGD/colonoscopy tomorrow. Cardio for clearance per GI. hold asa 2. HTN- currently normotensive. hold oral agents 3. Prolonged Qtc- EKG on admission. 461 is mildly prolonged. Cardio eval 3. CVA- hold asa 4. DVT ppx- SCD
--- NOTE | 2017-11-16 10:44 | PN ---
Physical Exam: SUBJECTIVE: Patient seen and examined at bedside this morning. Patient reported 1 episode of BRBPR this morning, about 1 cup. She tolerated clear liquid diet with nausea or vomiting. Patient denies chest pain, palpitations, SOB, abdominal pain, diarrhea or constipation. OBJECTIVE: Vital Signs Period Temp Pulse Resp BP Sys/Cordon Pulse Ox Last 24 Hr 97.8 F-98.8 F 63-79 14-20 103-152/61-76 95-99 GENERAL: The patient is awake, alert, and fully oriented, in no acute distress. HEAD: Normal with no signs of trauma. EYES: PERRLA, EOMI, sclera anicteric, conjunctiva clear. ENT: Ears normal, nares patent, oropharynx clear without exudates, moist mucous membranes. NECK: Trachea midline, full range of motion, supple. LUNGS: Breath sounds equal, clear to auscultation bilaterally, no accessory muscle use. HEART: Regular rate and rhythm, S1, S2 without murmur, rub or gallop. ABDOMEN: Soft, nontender, nondistended, normoactive bowel sounds. EXTREMITIES: 2+ pulses, warm, well-perfused, no edema. NEUROLOGICAL: Cranial nerves II through XII grossly intact. Normal speech, gait not observed. PSYCH: Normal mood, normal affect. SKIN: Warm, dry, normal turgor, no rashes or lesions noted Laboratory Results - last 24 hr 11/15/17 11/15/17 11/15/17 15:25 15:25 15:25 WBC 7.5 RBC 3.26 L Hgb 10.1 L Hct 29.6 L MCV 90.9 MCH 30.9 MCHC 34.0 RDW 14.5 Plt Count 215 D MPV 9.0 Absolute Neuts (auto) Neutrophils % Lymphocytes % Monocytes % Eosinophils % Basophils % Nucleated RBC % PT with INR 13.20 H INR 1.17 H PTT (Actin FS) 33.4 Sodium Cancelled Potassium Cancelled Chloride Cancelled Carbon Dioxide Cancelled Anion Gap Cancelled BUN Cancelled Creatinine Cancelled Creat Clearance w eGFR Cancelled Random Glucose Cancelled Calcium Cancelled Phosphorus Magnesium Total Bilirubin Cancelled AST Cancelled ALT Cancelled Alkaline Phosphatase Cancelled Total Protein Cancelled Albumin Cancelled Stool Occult Blood 11/15/17 11/15/17 11/16/17 16:35 17:44 07:05 WBC 6.3 RBC 2.76 L Hgb 8.4 L Hct 25.1 L D MCV 91.1 MCH 30.6 MCHC 33.6 RDW 14.3 Plt Count 166 D MPV 9.0 Absolute Neuts (auto) 3.2 Neutrophils % 50.6 Lymphocytes % 38.8 Monocytes % 7.1 Eosinophils % 3.1 Basophils % 0.4 Nucleated RBC % 0 PT with INR INR PTT (Actin FS) Sodium 145 Potassium 3.8 Chloride 111 H Carbon Dioxide 28 Anion Gap 6 L BUN 26 H Creatinine 1.1 Creat Clearance w eGFR 47.67 Random Glucose 95 Calcium 8.8 Phosphorus Magnesium Total Bilirubin 0.2 AST 13 L ALT 11 L Alkaline Phosphatase 69 Total Protein 5.6 L Albumin 3.0 L Stool Occult Blood Positive 11/16/17 11/16/17 07:05 07:05 WBC RBC Hgb Hct MCV MCH MCHC RDW Plt Count MPV Absolute Neuts (auto) Neutrophils % Lymphocytes % Monocytes % Eosinophils % Basophils % Nucleated RBC % PT with INR 12.80 INR 1.13 H PTT (Actin FS) 30.0 Sodium 147 H Potassium 4.3 Chloride 115 H Carbon Dioxide 26 Anion Gap 5 L BUN 29 H Creatinine 0.9 Creat Clearance w eGFR > 60 Random Glucose 94 Calcium 8.4 L Phosphorus 3.4 Magnesium 1.9 Total Bilirubin 0.4 AST 11 L ALT 9 L Alkaline Phosphatase 63 Total Protein 5.2 L Albumin 2.7 L Stool Occult Blood CBC, BMP 11/16/17 07:05 11/16/17 07:05 Active Medications Generic Name Dose Route Start Last Admin Trade Name Freq PRN Reason Stop Dose Admin Sodium Chloride 1,000 mls @ 75 mls/hr 11/15/17 18:15 11/15/17 19:00 1/2 Normal Saline IV 75 mls/hr ASDIR KILLIAN Administration Pantoprazole Sodium 40 mg 11/16/17 10:00 11/16/17 09:40 Protonix - PO 40 mg DAILY KILLIAN Administration ASSESSMENT/PLAN: Patien is an 82 year old female with past medical history of Colon cancer s/p right hemicolectomy (2013), Diverticulosis, Internal hemorrhoids, CVA (April 2017), and melanoma of the left foot, presented with bright red blood per rectum that started 3 days ago. #Bright red blood per rectum -Likely 2/2 diverticulosis vs internal hemorrhoids vs AVM. -Patient had last colonoscopy in 2015 which revealed diverticulosis and internal hemorrhoids. -Clear liquid diet for now. NPO after midnight. -Will hold Aspirin. -GI (Dr. Geller) consulted. Recommendations appreciated. -Transfer to monitored setting for bowel prep -Monitor H/H -Surgical consult placed to have on board for blled. -If active GI bleeding or change in hemodynamics transfer to ICU #Anemia: likely 2/2 to active GI bleeding -Hgb trending down 8.4 --> 7.9 -Will continue monitoring H/H q6h -For type and screen -pt still has BRBPR with BM -Transfuse with Hgb <7 #Hypertension -BP controlled. -Hold home antihypertensives for now. -Will monitor BP closely. #Prolonged QT interval -EKG shows Normal sinus rhythm at 68 beats per minute. Right bundle branch block and t-wave inversions noted, unchanged from prior study in 04/2017. QT434/ QTC 461. -Cardiology consult requested (Dr. Ruiz) #FEN -Not on any standing fluids. -Encourage increased oral fluid intake. -Electrolytes within normal limits. Routine bmp monitoring. -Clear liquid diet. NPO after midnight. #Prophylaxis -SCDs b/l lower extremities. No heparin/ lovenox due to active bleeding per rectum. Disposition -Admit to telemetry for continuous monitoring. -Transfer to ICU if hemodynamically unstable. Visit type - Emergency Visit Emergency Visit: Yes ED Registration Date: 11/15/17 Care time: The patient presented to the Emergency Department on the above date and was hospitalized for further evaluation of their emergent condition. - New Patient This patient is new to me today: Yes Date on this admission: 11/16/17 - Critical Care Critical Care patient: No
[2017-11-16] MEDS: SODIUM CHLORIDE 0.45% 1,000 ML IV SCH (11:26)
--- NOTE | 2017-11-16 12:52 | PN ---
GI Progress Note Subjective: Signed out AMA yesterday morning, returned yesterday evening Had rectal bleeding this morning No abdominal pain - Objective Vital Signs: Vital Signs Temperature 98.2 F 11/16/17 07:38 Pulse Rate 68 11/16/17 07:38 Respiratory Rate 16 11/16/17 07:38 Blood Pressure 137/65 11/16/17 07:38 O2 Sat by Pulse Oximetry (%) 96 11/16/17 08:30 Constitutional: Calm Eyes: No: Sclera Icterus Cardiovascular: Yes: Regular Rate and Rhythm Respiratory: Yes: CTA Bilaterally ...Auscultate: Yes: Normoactive Bowel Sounds ...Palpate: No: Hepatomegaly, Splenomegaly, Tenderness ...Percussion: No: Tympanitic Edema: No (No LE edema) Neurological: Yes: Alert, Oriented Labs: CBC, BMP 11/16/17 07:05 11/16/17 07:05 INR, PTT INR 1.13 (0.83-1.09) H 11/16/17 07:05 Hepatic Panel Total Bilirubin 0.4 mg/dL (0.2-1) 11/16/17 07:05 AST 11 U/L (15-37) L 11/16/17 07:05 ALT 9 U/L (13-61) L 11/16/17 07:05 Alkaline Phosphatase 63 U/L (45-117) 11/16/17 07:05 Albumin 2.7 g/dl (3.4-5.0) L 11/16/17 07:05 Problem List - Problems (1) Rectal bleeding Assessment/Plan: Remains hemodynamically stable Transfer to monitored setting for bowel prep Monitor H/H Surgical consult placed to have on board for bleed If active GI bleeding / change in hemodynamics, transfer to ICU Code(s): K62.5 - HEMORRHAGE OF ANUS AND RECTUM
[2017-11-16] MEDS ORDERED: PEG3350/SOD SULF,BICARB,CL/KCL 4,000 ML SOLN.RECON PO ONE (15:00)
--- NOTE | 2017-11-16 17:07 | EKG ---
Test Reason : Blood Pressure : / mmHG Vent. Rate : 068 BPM Atrial Rate : 068 BPM P-R Int : 168 ms QRS Dur : 136 ms QT Int : 434 ms P-R-T Axes : 022 013 -14 degrees QTc Int : 461 ms NORMAL SINUS RHYTHM RIGHT BUNDLE BRANCH BLOCK T WAVE ABNORMALITY, CONSIDER INFERIOR ISCHEMIA ABNORMAL ECG WHEN COMPARED WITH ECG OF 09-MAY-2017 20:04, RIGHT BUNDLE BRANCH BLOCK HAS REPLACED NON-SPECIFIC INTRA-VENTRICULAR CONDUCTION BLOCK MINIMAL CRITERIA FOR SEPTAL INFARCT ARE NO LONGER PRESENT Confirmed by MD Tip, Jose ([id number]) on 11/16/2017 5:07:34 PM Referred By: Confirmed By:Jose Whelan MD
[2017-11-16 17:20] LABS: HEMATOCRIT 23.1 % (32.4-45.2); HEMOGLOBIN 7.9 GM/dL (10.7-15.3); MCH 30.8 pg (25.7-33.7); MEAN CELL VOLUME 90.6 fl (80-96); MEAN PLT VOLUME 9.3 fl (7.5-11.1); PLATELET COUNT 172 K/MM3 (134-434); RBC 2.56 M/mm3 (3.60-5.2); RDW 14.4 % (11.6-15.6)
[2017-11-16] MEDS ORDERED: POLYETHYLENE GLYCOL 3350 255 GM BTL PO ONE (20:47)
--- NOTE | 2017-11-16 20:49 | PN ---
Progress Note (short form) - Note Progress Note: bowel prep was ordered to start earier this afternoon but i am just finding out from her nurse that she only drank 2 cups of the golytely all day and threw up 100cc of it. ordered miralax prep. Problem List - Problems (1) Rectal bleeding Code(s): K62.5 - HEMORRHAGE OF ANUS AND RECTUM
[2017-11-16 21:49] LABS: HEMATOCRIT 23.5 % (32.4-45.2); HEMOGLOBIN 7.9 GM/dL (10.7-15.3); MCH 30.7 pg (25.7-33.7); MCHC 33.8 g/dl (32.0-36.0); MEAN CELL VOLUME 90.8 fl (80-96); PLATELET COUNT 182 K/MM3 (134-434); RBC 2.59 M/mm3 (3.60-5.2); RDW 14.3 % (11.6-15.6); WHITE BLOOD COUNT 6.4 K/mm3 (4.0-10.0)
[2017-11-17 07:00] LABS: HEMATOCRIT 21.1 % (32.4-45.2); HEMOGLOBIN 7.1 GM/dL (10.7-15.3); MCH 30.6 pg (25.7-33.7); MCHC 33.7 g/dl (32.0-36.0); MEAN CELL VOLUME 90.8 fl (80-96); MEAN PLT VOLUME 9.2 fl (7.5-11.1); PLATELET COUNT 156 K/MM3 (134-434); RBC 2.32 M/mm3 (3.60-5.2); RDW 14.6 % (11.6-15.6); WHITE BLOOD COUNT 5.5 K/mm3 (4.0-10.0)
[2017-11-17 07:33] LABS: ALBUMIN 2.6 g/dl (3.4-5.0); ALK PHOS 59 U/L (45-117); ANION GAP 5 MMOL/L (8-16); BILIRUBIN,TOTAL 0.4 mg/dL (0.2-1); BLOOD UREA NITROGEN 16 mg/dL (7-18); CALCIUM 7.8 mg/dL (8.5-10.1); CHLORIDE 111 mmol/L (98-107); CO2 26 mmol/L (21-32); CREATININE 0.8 mg/dL (0.55-1.3); GLUCOSE,RANDOM 88 mg/dL (74-106); MAGNESIUM 1.9 mg/dL (1.8-2.4); PHOSPHOROUS 2.6 mg/dL (2.5-4.9); POTASSIUM 3.5 mmol/L (3.5-5.1); SGOT/AST 16 U/L (15-37); SGPT/ALT 9 U/L (13-61); SODIUM 143 mmol/L (136-145)
[2017-11-17] MEDS ORDERED: MAGNESIUM CITRATE 300 ML BOTTLE PO ONE (08:42)
--- NOTE | 2017-11-17 09:15 | PN ---
GI Progress Note Subjective: As noted in yesterday evening's note, patient refused to drink more that 1/3 of the golytely. This was changed to MiraLAX prep however she only took 2 sips of it. - Objective Vital Signs: Vital Signs Temperature 98.3 F 11/17/17 05:00 Pulse Rate 65 11/17/17 05:00 Respiratory Rate 18 11/17/17 05:00 Blood Pressure 139/68 11/17/17 05:00 O2 Sat by Pulse Oximetry (%) 95 11/16/17 21:00 Constitutional: Calm Eyes: No: Sclera Icterus Cardiovascular: Yes: Regular Rate and Rhythm. No: Murmur Respiratory: Yes: CTA Bilaterally Gastrointestinal Inspection: No: Distention ...Auscultate: Yes: Normoactive Bowel Sounds ...Palpate: No: Tenderness ...Percussion: No: Tympanitic Edema: No (No LE edema) Neurological: Yes: Alert Labs: CBC, BMP 11/17/17 05:30 11/17/17 05:30 INR, PTT INR 1.13 (0.83-1.09) H 11/16/17 07:05 Hepatic Panel Total Bilirubin 0.4 mg/dL (0.2-1) 11/17/17 05:30 AST 16 U/L (15-37) 11/17/17 05:30 ALT 9 U/L (13-61) L 11/17/17 05:30 Alkaline Phosphatase 59 U/L (45-117) 11/17/17 05:30 Albumin 2.6 g/dl (3.4-5.0) L 11/17/17 05:30 Problem List - Problems (1) Rectal bleeding Assessment/Plan: Attempting morning prep by adding magnesium citrate this morning, otherwise NPO Transfuse 1 U PRBC Code(s): K62.5 - HEMORRHAGE OF ANUS AND RECTUM
--- NOTE | 2017-11-17 09:22 | CONSULT ---
Consult Consult Specialty:: General Surgery Reason for Consultation:: lower GI bleed - History of Present Illness Chief Complaint: lower GI bleed History of Present Illness: 82 yo female PMH, Diverticulosis, colon cancer, melanoma of her left foot, TIA ( April) and HTN who presents with reports of BRBPR that has been present since evening. She reports that she underwent a right hemicolectomy 4 years ago for colon cancer and underwent a colonoscopy in April of 2015 revealed mild diverticulosis of the distal colon, moderate diverticulosis of the proximal colon and a patent ileocolonic surgical anatamosisin the proximal half of the colon. Patient was admitted yesterday morning for rectal bleeding, she has been transfused 1 unit RBC, and has remained hemodynamically stable throughout. Denies chest pain, shortness of breath, dizziness, vomiting, or headache. We were asked to assess. 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 currently on ASA 81mg once daily) Cardio/Vascular: Yes: HTN Dermatology: Yes: Melanoma (? 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 History of Recent Travel: No Home Medications - Allergies Allergies/Adverse Reactions: Allergies Allergy/AdvReac Type Severity Reaction Status Date / Time No Known Allergies Allergy Verified 11/15/17 15:00 - Home Medications Home Medications: Ambulatory Orders Metoprolol Succinate 50 mg PO DAILY 05/08/15 Family Disease History - Family Disease History Family Disease History: Other: Father ( 61: COPD), Mother (: 72: CVA / HTN), Brother (1, : Liver cancer (was an alcoholic)), Sister (1, , HCV cirrhosis), Son (1, healthy), Daughter (1, healthy) Review of Systems - Review of Systems Constitutional: denies: Chills, Fever Eyes: denies: Blind Spots, Recent Change in Vision HENT: denies: Difficult Swallowing, Throat Pain Neck: denies: Swollen Glands, Tenderness Cardiovascular: denies: Chest Pain, Palpitations Respiratory: denies: Cough, SOB Gastrointestinal: reports: Abdominal Pain, Rectal Bleeding Genitourinary: denies: Burning, Discharge, Dysuria Breasts: reports: No Symptoms Reported. denies: Pain Musculoskeletal: denies: Back Pain, Joint Pain, Joint Swelling Integumentary: denies: Eczema, Pruritis, Rash Neurological: denies: Seizure, Syncope, Tremors, Weakness Endocrine: denies: Unexplained Weight Gain, Unexplained Weight Loss Hematology/Lymphatic: denies: Easily Bruised, Excessive Bleeding Psychiatric: denies: Anxiety, Depression Physical Exam Vital Signs: Vital Signs Temperature 98.3 F 11/17/17 05:00 Pulse Rate 65 11/17/17 05:00 Respiratory Rate 18 11/17/17 05:00 Blood Pressure 139/68 11/17/17 05:00 O2 Sat by Pulse Oximetry (%) 95 11/16/17 21:00 Constitutional: Yes: Well Nourished, No Distress, Calm Eyes: Yes: Conjunctiva Clear, EOM Intact HENT: Yes: Atraumatic, Normocephalic Neck: Yes: Supple, Trachea Midline Cardiovascular: Yes: Regular Rate and Rhythm, S1, S2 Respiratory: Yes: Regular, CTA Bilaterally Gastrointestinal: Yes: Normal Bowel Sounds, Soft Labs: CBC, BMP 11/17/17 05:30 11/17/17 05:30 Imaging - Results EKG: Report Reviewed, Image Reviewed Problem List - Problems (1) Rectal bleeding Assessment/Plan: 82 yo female MMP with LGIB secondary to diverticulosis s/p partial colectomy [address] Ann, transfused 1 unit RBC this admission. No need for emergency surgical intervention. NPO and IVF ressuscitation Transfuse as needed consider monitored setting GI evaluation for endoscopy consider IR for embolization if persistent Will follow Code(s): K62.5 - HEMORRHAGE OF ANUS AND RECTUM (2) Anemia Code(s): D64.9 - ANEMIA, UNSPECIFIED Qualifiers: Anemia type: iron deficiency Iron deficiency anemia type: chronic blood loss Qualified Code(s): D50.0 - Iron deficiency anemia secondary to blood loss (chronic) (3) TIA (transient ischemic attack) Code(s): G45.9 - TRANSIENT CEREBRAL ISCHEMIC ATTACK, UNSPECIFIED (4) HTN (hypertension) Code(s): I10 - ESSENTIAL (PRIMARY) HYPERTENSION Qualifiers: Hypertension type: essential hypertension Qualified Code(s): I10 - Essential (primary) hypertension
--- NOTE | 2017-11-17 09:28 | CON.CARD ---
Consult Consult Specialty:: Cardiology Referred by:: Hospitalist Medicine Reason for Consultation:: Pre-colonoscopy cardiovascular evaluation - History of Present Illness Chief Complaint: Hematochezia History of Present Illness: PCP: Jimmy Jeter HISTORY OF PRESENT ILLNESS: Patient is an 82 year old female with history significant for HTN, TIA on ASA, colon cancer s/p right hemicolectomy in 2013, diverticulosis, internal hemorrhoids, recently admitted for bright red blood per rectum associated with feeling lightheaded with generalized weakness, however denies fall, loss of consciousness, or trauma to the head. Since her hemicolectomy in 2013, she denies any episodes of BRBPR until this past . She denies headache, lightheadedness, falls, syncope, change in vision, fevers chills, shortness of breath with exertion worse than baseline, chest pain, palpitations, abdominal pain, nausea, vomiting, diarrhea. 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 currently on ASA 81mg once daily) Cardio/Vascular: Yes: HTN Dermatology: Yes: Melanoma (? 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 Travel: No Home Medications - Allergies Allergies/Adverse Reactions: Allergies Allergy/AdvReac Type Severity Reaction Status Date / Time No Known Allergies Allergy Verified 11/15/17 15:00 - Home Medications Home Medications: Ambulatory Orders Metoprolol Succinate 50 mg PO DAILY 05/08/15 Family Disease History - Family Disease History Family Disease History: Other: Father ( 61: COPD), Mother (: 72: CVA / HTN), Brother (1, : Liver cancer (was an alcoholic)), Sister (1, , HCV cirrhosis), Son (1, healthy), Daughter (1, healthy) Review of Systems - Review of Systems Constitutional: reports: Weakness Eyes: reports: No Symptoms HENT: reports: No Symptoms Neck: reports: No Symptoms Cardiovascular: reports: No Symptoms Respiratory: reports: SOB on Exertion Gastrointestinal: reports: Rectal Bleeding Genitourinary: reports: No Symptoms Breasts: reports: No Symptoms Reported Musculoskeletal: reports: No Symptoms Integumentary: reports: No Symptoms Neurological: reports: No Symptoms Endocrine: reports: No Symptoms Hematology/Lymphatic: reports: No Symptoms Vital Signs: Vital Signs Temperature 98.3 F 11/17/17 05:00 Pulse Rate 65 11/17/17 05:00 Respiratory Rate 18 11/17/17 05:00 Blood Pressure 139/68 11/17/17 05:00 O2 Sat by Pulse Oximetry (%) 95 11/16/17 21:00 Constitutional: Yes: No Distress, Calm, Thin Neck: Yes: Supple Respiratory: Yes: Regular, CTA Bilaterally Gastrointestinal: Yes: Soft, Hypoactive Bowel Sounds, Rectal Bleeding Cardiovascular: Yes: Regular Rate and Rhythm JVD: No Carotid Bruit: No Heart Sounds: Yes: S1, S2 Edema: No - Other Data Labs, Other Data: CBC, BMP 11/17/17 05:30 11/17/17 05:30 INR, PTT INR 1.13 (0.83-1.09) H 11/16/17 07:05 11/15/2017 NSR @ 68 RBBB T wave changes similar to previous 05/09/2017 Problem List - Problems (1) TIA (transient ischemic attack) Code(s): G45.9 - TRANSIENT CEREBRAL ISCHEMIC ATTACK, UNSPECIFIED (2) Preprocedural cardiovascular examination Code(s): Z01.810 - ENCOUNTER FOR PREPROCEDURAL CARDIOVASCULAR EXAMINATION (3) Rectal bleeding Code(s): K62.5 - HEMORRHAGE OF ANUS AND RECTUM (4) HTN (hypertension) Code(s): I10 - ESSENTIAL (PRIMARY) HYPERTENSION Qualifiers: Hypertension type: essential hypertension Qualified Code(s): I10 - Essential (primary) hypertension (5) Anemia Code(s): D64.9 - ANEMIA, UNSPECIFIED Qualifiers: Anemia type: iron deficiency Iron deficiency anemia type: chronic blood loss Qualified Code(s): D50.0 - Iron deficiency anemia secondary to blood loss (chronic) Assessment/Plan 1. Painless rectal bleeding, possibilities include diverticular hemorrhage, recurrent colon cancer, bleeding anastamotic vessel. 2. HTN 3. TIA 4. Pre-procedure cardiovascular evaluation 5. Abnormal ECG P: 1. Transfuse pRBC to maintain Hgb>8.0 2. Given absence of sxs of acute coronary syndrome, decompensated CHF or malignant arrhythmia, there are no absolute CV contraindications against proceeding with EGD/colonoscopy once Hgb stabilize 3. Resume Toprol XL 25 qd as hemodynamics tolerate once oral intake resumed 4. Thank you for consultative opportunity
[2017-11-17] MEDS: PANTOPRAZOLE 40 MG TABLET (FP) PO SCH (10:15)
--- NOTE | 2017-11-17 12:00 | PN ---
Teaching Attending Note Name of Resident: Indira Mendiola ATTENDING PHYSICIAN STATEMENT I saw and evaluated the patient. I reviewed the resident's note and discussed the case with the resident. I agree with the resident's findings and plan as documented. SUBJECTIVE:was unable to tolerate bowel prep. continues to have BRBPR mixed with clots. 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 Lower GI bleed- likely diverticular bleed, hemorrhoid or AVM. with acute blood loss anemia. will transfuse 1 unit PRBC as she is actively bleeding. plan to give miralax prep vs mag citrate and colonoscopy later today. repeat CBC after transfusion. f/u endoscopy. Cardio for clearance per GI. hold asa 2. HTN- currently normotensive. hold oral agents 3. Prolonged Qtc- EKG on admission. 461 is mildly prolonged. Cardio eval 3. CVA- hold asa 4. DVT ppx- SCD
--- NOTE | 2017-11-17 13:15 | PN ---
Physical Exam: SUBJECTIVE: Patient seen and examined at bedside this morning. Patient still has active bleeding with bowel movements. She denies palpitations, weakness or shortness of breath. Patient was not able to tolerate bowel prep given last night. Tolerated UPC and Mag Citrate. Will go for endoscopy/colonoscopy after transfusion. OBJECTIVE: Vital Signs Period Temp Pulse Resp BP Sys/Cordon Pulse Ox Last 24 Hr 97.6 F-98.3 F 60-82 16-18 115-156/68-82 95 GENERAL: The patient is awake, alert, and fully oriented, in no acute distress. HEAD: Normal with no signs of trauma. EYES: PERRLA, EOMI, sclera anicteric, conjunctiva clear. ENT: Ears normal, nares patent, oropharynx clear without exudates, moist mucous membranes. NECK: Trachea midline, full range of motion, supple. LUNGS: Breath sounds equal, clear to auscultation bilaterally, no accessory muscle use. HEART: Regular rate and rhythm, S1, S2 without murmur, rub or gallop. ABDOMEN: Soft, nontender, nondistended, normoactive bowel sounds. EXTREMITIES: 2+ pulses, warm, well-perfused, no edema. NEUROLOGICAL: Cranial nerves II through XII grossly intact. Normal speech, gait not observed. PSYCH: Normal mood, normal affect. SKIN: Warm, dry, normal turgor, no rashes or lesions noted Laboratory Results - last 24 hr 11/16/17 11/16/17 11/16/17 16:40 21:40 21:40 WBC 6.0 6.4 RBC 2.56 L 2.59 L Hgb 7.9 L 7.9 L Hct 23.1 L 23.5 L MCV 90.6 90.8 MCH 30.8 30.7 MCHC 34.0 33.8 RDW 14.4 14.3 Plt Count 172 182 MPV 9.3 9.0 Sodium Potassium Chloride Carbon Dioxide Anion Gap BUN Creatinine Creat Clearance w eGFR Random Glucose Calcium Phosphorus Magnesium Total Bilirubin AST ALT Alkaline Phosphatase Total Protein Albumin Blood Type O POSITIVE Antibody Screen Negative Crossmatch See Detail 11/17/17 11/17/17 05:30 05:30 WBC 5.5 RBC 2.32 L Hgb 7.1 L Hct 21.1 L MCV 90.8 MCH 30.6 MCHC 33.7 RDW 14.6 Plt Count 156 MPV 9.2 Sodium 143 Potassium 3.5 Chloride 111 H Carbon Dioxide 26 Anion Gap 5 L BUN 16 Creatinine 0.8 Creat Clearance w eGFR > 60 Random Glucose 88 Calcium 7.8 L Phosphorus 2.6 Magnesium 1.9 Total Bilirubin 0.4 AST 16 ALT 9 L Alkaline Phosphatase 59 Total Protein 5.0 L Albumin 2.6 L Blood Type Antibody Screen Crossmatch Active Medications Generic Name Dose Route Start Last Admin Trade Name Fernandoq PRN Reason Stop Dose Admin Sodium Chloride 1,000 mls @ 75 mls/hr 11/15/17 18:15 11/16/17 11:26 1/2 Normal Saline IV 75 mls/hr ASDIR KILLIAN Administration Pantoprazole Sodium 40 mg 11/16/17 10:00 11/17/17 10:15 Protonix - PO Not Given DAILY KILLIAN ASSESSMENT/PLAN: Patient is an 82 year old female with past medical history of Colon cancer s/p right hemicolectomy (2013), Diverticulosis, Internal hemorrhoids, CVA (April 2017), and melanoma of the left foot, presented with bright red blood per rectum that started 3 days ago. #Bright red blood per rectum -Likely 2/2 diverticulosis vs internal hemorrhoids vs AVM. -Patient had last colonoscopy in 2015 which revealed diverticulosis and internal hemorrhoids. -GI (Dr. Geller) consulted. Recommendations appreciated. -For colonoscopy this afternoon. -Monitor H/H -If active GI bleeding or change in hemodynamics, transfer to ICU. -Surgery (Dr. Spears) consulted. Recommendations appreciated. #Anemia: likely 2/2 to active GI bleeding -Hgb trending down 7.9 --> 7.1 this morning -Transfused 1 pRBC. -Will repeat CBC tonight and continue to monitor in the AM -As per cardiology, will maintain Hgb >8. #Hypertension -BP controlled. -Hold home antihypertensives for now. -Will monitor BP closely. -Will resume Toprol XL 25mg daily as hemodynamics tolerate once oral intake resumed. #Prolonged QT interval -EKG shows Normal sinus rhythm at 68 beats per minute. Right bundle branch block and t-wave inversions noted, unchanged from prior study in 04/2017. QT434/ QTC 461. -Cardiology (Dr. Ruiz) consulted. Recommendations appreciated. #FEN -Not on any standing fluids. -Encourage increased oral fluid intake. -Electrolytes within normal limits. Routine bmp monitoring. -Clear liquid diet. NPO after midnight. #Prophylaxis -SCDs b/l lower extremities. No heparin/ lovenox due to active bleeding per rectum. Disposition -Admit to telemetry for continuous monitoring. -Transfer to ICU if hemodynamically unstable. Visit type - Emergency Visit Emergency Visit: Yes ED Registration Date: 11/15/17 Care time: The patient presented to the Emergency Department on the above date and was hospitalized for further evaluation of their emergent condition. - New Patient This patient is new to me today: Yes Date on this admission: 11/17/17 - Critical Care Critical Care patient: No
[2017-11-17] MEDS: SODIUM CHLORIDE 0.45% 1,000 ML IV SCH (13:42)
--- NOTE | 2017-11-17 16:32 | CONSULT ---
Consultation: REQUESTING PROVIDER: CONSULT REQUEST: We have been asked to medically evaluate this patient for admission to the ICU for close monitoring overnight. HISTORY OF PRESENT ILLNESS: Khloe Santacruz is an 82yo woman with a PMH of colon CA s/p right hemicolectomy ( 2013), TIA (April 2017), HTN who presented to the ED on 11/15/17 reporting multiple episodes of BRBPR at home. She reports about 5 episodes of rectal bleeding starting on . Per Ms Santacruz, the bleeding was red and a significant quantity. She denies any associated SOB or lightheadedness other than an episode of mild dizziness on Friday morning that accompanied a large, bloody bowel movement. This dizziness self-resolved and did not recur. Ms Santacruz's ED course was notable for positive stool occult test, hemodynamic stability, hgb 10.1 on arrival. Her hemoglobin continued to downtrend after admission, to 8.4 and then 7.1 this morning for which she received a transfusion of 1u pRBCs. She was taken by Dr Geller for an EGD and colonoscopy this afternoon without identification of the source of her bleeding. She was transferred to the ICU for monitoring given her continued rectal bleeding in the setting of acute blood loss anemia and requirement for transfusion. REVIEW OF SYSTEMS: General: No fevers, no chills, no weight or appetite change, no malaise HEENT: No changes in vision, no changes in hearing, no congestion, no sore throat CV: No chest pain, no palpitations, no LE edema Pulm: No SOB, no cough, no wheezing GI: See HPI : No frequency, no urgency, no dysuria Musc: No back pain, no joint swelling, no recent injury Skin: No rash, no lesions, no erythema Endo: No excessive thirst, no heat/cold intolerance Heme: No unusual bruising or bleeding, no swollen glands Neuro: No syncope, no numbness/tingling, no focal weakness Vasc: No claudication Psych: No recent change in mood, no SI or HI PHYSICAL EXAMINATION Vital Signs - 24 hr 11/16/17 11/16/17 11/16/17 18:00 18:50 21:00 Temperature 98.2 F 98 F Pulse Rate 65 68 Respiratory 16 18 Rate Blood Pressure 140/70 142/70 O2 Sat by Pulse 95 Oximetry (%) 0911/17/17 11/17/17 22:00 01:42 05:00 Temperature 98.2 F 97.6 F 98.3 F Pulse Rate 64 68 65 Respiratory 18 18 18 Rate Blood Pressure 145/80 136/82 139/68 O2 Sat by Pulse Oximetry (%) 11/17/17 11/17/17 11/17/17 09:00 13:00 16:10 Temperature 98.2 F 98.4 F 97.9 F Pulse Rate 82 68 64 Respiratory 18 18 14 Rate Blood Pressure 156/78 143/78 147/63 O2 Sat by Pulse 97 100 Oximetry (%) 11/17/17 16:25 Temperature Pulse Rate 66 Respiratory 22 H Rate Blood Pressure 147/72 O2 Sat by Pulse 100 Oximetry (%) General: Comfortable, no acute distress HEENT: PERRL, EOMI, MMM, voice normal, normal neck ROM, no LAD Cards: RRR, no murmur appreciated Pulm: Comfortable on room air, clear to auscultation bilaterally Abd: Soft, nontender, nondistended Rectal: Deferred due to recent procedure Ext: Atraumatic. 1+ LLE edema. ROM intact. Strength 5/5 and equal bilaterally Vasc: Extremities WWP. Palpable radial and pedal pulses bilaterally Skin: Normal color, no rashes or lesions Neuro: A&Ox3, CN grossly intact, normal speech, motor/sensory grossly intact and symmetric Psych: Mood appropriate to situation Laboratory Results - last 24 hr 11/16/17 11/16/17 11/16/17 16:40 21:40 21:40 WBC 6.0 6.4 RBC 2.56 L 2.59 L Hgb 7.9 L 7.9 L Hct 23.1 L 23.5 L MCV 90.6 90.8 MCH 30.8 30.7 MCHC 34.0 33.8 RDW 14.4 14.3 Plt Count 172 182 MPV 9.3 9.0 Sodium Potassium Chloride Carbon Dioxide Anion Gap BUN Creatinine Creat Clearance w eGFR Random Glucose Calcium Phosphorus Magnesium Total Bilirubin AST ALT Alkaline Phosphatase Total Protein Albumin Blood Type O POSITIVE Antibody Screen Negative Crossmatch See Detail 11/17/17 11/17/17 05:30 05:30 WBC 5.5 RBC 2.32 L Hgb 7.1 L Hct 21.1 L MCV 90.8 MCH 30.6 MCHC 33.7 RDW 14.6 Plt Count 156 MPV 9.2 Sodium 143 Potassium 3.5 Chloride 111 H Carbon Dioxide 26 Anion Gap 5 L BUN 16 Creatinine 0.8 Creat Clearance w eGFR > 60 Random Glucose 88 Calcium 7.8 L Phosphorus 2.6 Magnesium 1.9 Total Bilirubin 0.4 AST 16 ALT 9 L Alkaline Phosphatase 59 Total Protein 5.0 L Albumin 2.6 L Blood Type Antibody Screen Crossmatch Imaging 1. Colonoscopy - normal esophageal mucosa, small tear that occurred from coughing - Mild gastritis in gastric antrum - Duodenal mucosa w/o abnormalities from bulb to second portion - retroflexed views of stomach with small blood from esophageal tear but otherwise unremarkable 2. EGD - Pooled blood throughout - Moderate diverticulosis in left colon/sigmoid - 6mm sigmoid polyp - not removed due to current bleeding - prior ileocolonic surgical anastomosis in proximal colon - Mucosa normal in rosalba-terminal ileum - Small internal hemorrhoids Active Medications Generic Name Dose Route Start Last Admin Trade Name Freq PRN Reason Stop Dose Admin Sodium Chloride 1,000 mls @ 75 mls/hr 11/15/17 18:15 11/17/17 13:42 1/2 Normal Saline IV 75 mls/hr ASDIR KILLIAN Administration Pantoprazole Sodium 40 mg 11/16/17 10:00 11/17/17 10:15 Protonix - PO Not Given DAILY KILLIAN ASSESSMENT/PLAN: Khloe Santacruz is an 82yo woman with a PMH of colon CA s/p right hemicolectomy, TIA , HTN, admitted with rectal bleeding since . She has continued to have rectal bleeding and required a transfusion of pRBCs today from hgb decrease to 7.1 from 10.1 on admission. She underwent colonoscopy and EGD today that showed blood throughout the colon without a source of bleeding identified. She was transferred to the ICU from the endoscopy suite for monitoring. Neuro: - No issues, A&O. - h/o TIA in April CV: - HDS - Monitor vitals Pulm: - Comfortable on room air - Encourage OOB as tolerated - IS 10x per hour Heme: - Hgb decreased to 7.1 this morning from 10.1 on admission - Acute blood loss anemia due to ongoing GI bleed - Monitor daily CBC - Hold home ASA, no NSAIDs GI: - GI bleed without source identified on EGD or colonoscopy - GI (Dr DiGiorno) following - 40mg IV pantoprazole daily - Sucralfate 1g Q8 hr - Continue NPO in the setting of ongoing bleeding Renal: - No issues ID: - No issues Endo: - No issues Psych: - No issues Musc: - OOB as tolerated PPx: - Low DVT risk, SCD's - 40mg IV pantoprazole FEN: - NPO - NS@75 - Replete lytes PRN Dispo: - Monitor in ICU To be discussed with Dr Downey. Aniya Gee PGY1 Visit type - Emergency Visit Emergency Visit: No - New Patient This patient is new to me today: Yes Date on this admission: 11/17/17 - Critical Care Critical Care patient: Yes Total Critical Care Time (in minutes): 45 Critical Care Statement: The care of this patient involved high complexity decision making to prevent further life threatening deterioration of the patient 's condition and/or to evaluate & treat vital organ system(s) failure or risk of failure.
--- NOTE | 2017-11-17 16:47 | PN ---
Progress Note (short form) - Note Progress Note: EGD/Colonoscopy complete. report placed in procedural section of physical chart and to be scanned into [employer] Problem List - Problems (1) Rectal bleeding Code(s): K62.5 - HEMORRHAGE OF ANUS AND RECTUM
[2017-11-17] MEDS ORDERED: SODIUM CHLORIDE 0.45% 1,000 ML IV SCH (17:11)
[2017-11-17] MEDS ORDERED: PANTOPRAZOLE SODIUM 80 MG in SODIUM CHLORIDE 100 ML IVPB SCH (17:15)
[2017-11-17 18:25] LABS: BASO % 0.4 % (0-2.0); EOS % 2.5 % (0-4.5); HEMATOCRIT 25.2 % (32.4-45.2); HEMOGLOBIN 8.5 GM/dL (10.7-15.3); MCH 30.6 pg (25.7-33.7); MCHC 33.8 g/dl (32.0-36.0); MEAN CELL VOLUME 90.7 fl (80-96); MONO % 8.4 % (3.8-10.2); NEUT % 63.7 % (42.8-82.8); PLATELET COUNT 166 K/MM3 (134-434); RBC 2.78 M/mm3 (3.60-5.2); WHITE BLOOD COUNT 6.5 K/mm3 (4.0-10.0)
[2017-11-17] MEDS: MUPIROCIN 2% TOPICAL OINTMENT FOR DECOLONIZATION NS SCH (21:42)
[2017-11-17] MEDS: CHLORHEXIDINE GLUCONATE 4% CLEANSER FOR DECOLONIZATION TP SCH (21:42)
[2017-11-17] MEDS: SUCRALFATE 1 GM/10 ML UNIT DOSE CUPS PO SCH (22:27)
[2017-11-17 23:33] LABS: HEMOGLOBIN 7.8 GM/dL (10.7-15.3); MCH 30.3 pg (25.7-33.7); MCHC 33.9 g/dl (32.0-36.0); MEAN CELL VOLUME 89.4 fl (80-96); MEAN PLT VOLUME 8.9 fl (7.5-11.1); PLATELET COUNT 165 K/MM3 (134-434); RBC 2.57 M/mm3 (3.60-5.2); RDW 14.4 % (11.6-15.6); WHITE BLOOD COUNT 9.9 K/mm3 (4.0-10.0)
--- NOTE | 2017-11-18 00:30 | PN ---
Progress Note (short form) - Note Progress Note: 23:15 H/H is 7.8/23. As per cardiology, maintain Hb > 8gm/dl. Transfuse 1 unit of PRBC. Repeat CBC in AM.
[2017-11-18] MEDS ORDERED: ACETAMINOPHEN 1000 MG/100 ML VIAL (NON FORMULARY) IVPB ONE (00:50)
[2017-11-18] MEDS: PANTOPRAZOLE SODIUM 160 MG in DEXTROSE 5%-WATER - 290 ML IVPB SCH (01:30)
[2017-11-18] MEDS ORDERED: PANTOPRAZOLE SODIUM 80 MG in SODIUM CHLORIDE 100 ML IVPB SCH (01:30)
[2017-11-18] MEDS: SUCRALFATE 1 GM/10 ML UNIT DOSE CUPS PO SCH ×3 (05:56→21:29)
--- NOTE | 2017-11-18 06:34 | PN ---
Progress Note (short form) - Note Progress Note: Chief Complaint: Events noted, notes reviewed, denies any chest pain or dyspnea , denies any recurrent lower gastrointestinal bleed, results of EGD and colonoscopy noted History of Present Illness: Seen and examined in the ICU. Events noted, notes reviewed, denies any chest pain or dyspnea, denies any recurrent lower gastrointestinal bleed, results of EGD and colonoscopy noted Medications: Current Medications Chlorhexidine Gluconate (Hibiclens For Decolonization -) 1 applic TP HS [facility] Last Admin: 11/17/17 21:42 Dose: 1 applic Sodium Chloride (1/2 Normal Saline) 1,000 mls @ 75 mls/hr IV ASDIR [facility] Last Admin: 11/17/17 19:00 Dose: 75 mls/hr Pantoprazole Sodium 160 mg/ (Dextrose) 290 mls @ 14.5 mls/hr IVPB Q20H [facility] Last Admin: 11/18/17 01:30 Dose: 14.5 mls/hr Mupirocin (Bactroban Ointment (For Decolonization) -) 1 applic NS BID [facility] Stop: 11/22/17 21:59 Last Admin: 11/17/17 21:42 Dose: 1 applic Sucralfate (Carafate Oral Suspension -) 1 gm PO TID [facility] Stop: 11/20/17 21:59 Last Admin: 11/18/17 05:56 Dose: 1 gm Review of Systems - Review of Systems Constitutional: reports: Weakness Eyes: reports: No Symptoms HEENT: reports: No Symptoms Neck: reports: No Symptoms Cardiovascular: As noted above Respiratory: reports: SOB on Exertion Gastrointestinal: reported: Rectal Bleeding Genitourinary: reports: No Symptoms Musculoskeletal: reports: No Symptoms Neurological: reports: No Symptoms Endocrine: reports: No Symptoms Vital Signs: Last Vital Signs Temp Pulse Resp BP Pulse Ox 98.7 F 67 22 H 121/76 98 11/18/17 06:40 11/18/17 06:40 11/18/17 06:40 11/18/17 06:40 11/17/17 22:48 Intake & Output 11/15/17 11/16/17 11/17/17 11/18/17 23:59 23:59 23:59 23:59 Intake Total 2160 550 525 Output Total 800 Balance 2160 550 -275 Weight 146 lb 9 oz 143 lb 8 oz Constitutional: No Distress, Calm, Thin Neck: Supple Negative JVD No Bruit Respiratory: Clear to A&P Bilaterally Cardiovascular: S1 S2 Regular Rate and Rhythm Grade 1-2/6 MARGARITA Gastrointestinal: Soft Benign Normal Bowel Sounds Ext: No Edema Labs: CBC, BMP 11/17/17 23:15 11/17/17 05:30 Hepatic Panel Total Bilirubin 0.4 mg/dL (0.2-1) 11/17/17 05:30 AST 16 U/L (15-37) 11/17/17 05:30 ALT 9 U/L (13-61) L 11/17/17 05:30 Alkaline Phosphatase 59 U/L (45-117) 11/17/17 05:30 Albumin 2.6 g/dl (3.4-5.0) L 11/17/17 05:30 Assessment/Plan ASSESSMENT: 1. Painless rectal bleeding, probably diverticular bleed is suspect 2. HTN 3. Abnormal EKG 4. 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 History TIA/transient ischemic attack 6. Anemia related to the above bleed PLAN: 1. Monitor Hg and transfuse to maintain equal or > 8.0 2. Resume Toprol XL hemodynamics permitting 3. Resume ASA once hemostasis is achieved and not contraindicated 4. Outpatient followup for the above noted heart murmur Lauri Martinez M.D.
[2017-11-18 08:07] LABS: BASO % 0.7 % (0-2.0); EOS % 1.4 % (0-4.5); HEMATOCRIT 25.6 % (32.4-45.2); HEMOGLOBIN 8.6 GM/dL (10.7-15.3); LYMPH % 21.8 % (8-40); MCH 30.2 pg (25.7-33.7); MCHC 33.8 g/dl (32.0-36.0); MEAN CELL VOLUME 89.3 fl (80-96); MEAN PLT VOLUME 8.8 fl (7.5-11.1); MONO % 7.2 % (3.8-10.2); NEUT % 68.9 % (42.8-82.8); PLATELET COUNT 141 K/MM3 (134-434); RBC 2.86 M/mm3 (3.60-5.2); RDW 14.1 % (11.6-15.6); WHITE BLOOD COUNT 9.8 K/mm3 (4.0-10.0)
[2017-11-18 08:45] LABS: ANION GAP 9 MMOL/L (8-16); BLOOD UREA NITROGEN 8 mg/dL (7-18); CALCIUM 7.8 mg/dL (8.5-10.1); CHLORIDE 112 mmol/L (98-107); CO2 22 mmol/L (21-32); CREATININE 0.7 mg/dL (0.55-1.3); GLUCOSE,RANDOM 78 mg/dL (74-106); MAGNESIUM 2.1 mg/dL (1.8-2.4); PHOSPHOROUS 3.1 mg/dL (2.5-4.9); POTASSIUM 3.7 mmol/L (3.5-5.1); SODIUM 144 mmol/L (136-145)
[2017-11-18] MEDS ORDERED: POTASSIUM CHLORIDE 20 MEQ PREMIX IVPB 100 ML IVPB ONE (09:00)
[2017-11-18] MEDS: LACTATED RINGERS SOLUTION 1,000 ML/1,000 ML INFUS.BAG IV SCH (09:15)
[2017-11-18 09:28] LABS: INR 1.25 (0.83-1.09); PROTHROMBIN TIME (PATIENT) 14.1 SEC (9.7-13.0)
[2017-11-18 09:31] LABS: ACTIVATED PTT 32.1 SECONDS (25.2-36.5)
[2017-11-18] MEDS ORDERED: PANTOPRAZOLE SODIUM 40 MG VIAL IVPUSH SCH (10:00)
[2017-11-18] MEDS: KCL 10 MEQ IVPB 10 MEQ/100 ML INFUS.BAG IVPB SCH ×2 (11:17→11:33)
[2017-11-18] MEDS: MUPIROCIN 2% TOPICAL OINTMENT FOR DECOLONIZATION NS SCH ×2 (11:33→22:00)
--- NOTE | 2017-11-18 13:05 | PN ---
GI Progress Note Subjective: Small bloody BM this morning No abdominal ;pain Received 2 U PRBC in total. Hgb 8.6 today Son-in-law present at bedside - Objective Vital Signs: Vital Signs Temperature 98.3 F 11/18/17 10:00 Pulse Rate 70 11/18/17 10:00 Respiratory Rate 14 11/18/17 10:00 Blood Pressure 123/79 11/18/17 10:00 O2 Sat by Pulse Oximetry (%) 98 11/18/17 09:00 Constitutional: Calm Eyes: No: Sclera Icterus Cardiovascular: Yes: Regular Rate and Rhythm, Murmur Respiratory: Yes: CTA Bilaterally Gastrointestinal Inspection: No: Distention ...Auscultate: Yes: Normoactive Bowel Sounds ...Palpate: No: Hepatomegaly, Splenomegaly, Tenderness ...Percussion: No: Tympanitic Edema: No (No LE edema) Neurological: Yes: Alert, Oriented Labs: CBC, BMP 11/18/17 07:50 11/18/17 07:50 INR, PTT INR 1.25 (0.83-1.09) H 11/18/17 07:50 Problem List - Problems (1) Rectal bleeding Assessment/Plan: Small bloody BM this morning, otherwise no overt bleeding up until now I would plan to continue observation for now. If conitnued epidoes of rectal bleeding, obtain bleeding scan Advance to clears BID H/H Carafate as ordered for distal esophageal rent Code(s): K62.5 - HEMORRHAGE OF ANUS AND RECTUM
--- NOTE | 2017-11-18 13:18 | PN ---
Teaching Attending Note Name of Resident: Indira Mendiola ATTENDING PHYSICIAN STATEMENT I saw and evaluated the patient. I reviewed the resident's note and discussed the case with the resident. I agree with the resident's findings and plan as documented with exceptions below. SUBJECTIVE: Patient seen and examined, scant bleeding per rectum with BM today, overall improved. No dizziness, chest pain, palpitations, dyspnea, abdominal pain or new concerns. Eager to eat. OBJECTIVE: Vital Signs Period Temp Pulse Resp BP Sys/Cordon Pulse Ox Last 24 Hr 97.9 F-99.6 F 62-86 14-34 121-157/53-84 98-100 Intake & Output 11/15/17 11/16/17 11/17/17 11/18/17 23:59 23:59 23:59 23:59 Intake Total 2160 550 525 Output Total 800 Balance 2160 550 -275 Weight 146 lb 9 oz 143 lb 8 oz General: sitting in chair in no acute distress CVS;S1S2 regular Chest:CTAB, no rales or wheezing Abdomen:soft, NT, ND, positive bowel sounds Extremities: no edema Home Medications Medication Instructions Recorded Metoprolol Succinate 50 mg PO DAILY 05/08/15 Active Medications Chlorhexidine Gluconate (Hibiclens For Decolonization -) 1 applic TP HS [facility] Last Admin: 11/17/17 21:42 Dose: 1 applic Pantoprazole Sodium 160 mg/ (Dextrose) 290 mls @ 14.5 mls/hr IVPB Q20H [facility] Last Admin: 11/18/17 01:30 Dose: 14.5 mls/hr Lactated Ringer's (Lactated Ringers Solution) 1,000 ml in 1,000 mls @ 75 mls/ hr IV ASDIR [facility] Last Admin: 11/18/17 09:15 Dose: 75 mls/hr Mupirocin (Bactroban Ointment (For Decolonization) -) 1 applic NS BID [facility] Stop: 11/22/17 21:59 Last Admin: 11/18/17 11:33 Dose: 1 applic Sucralfate (Carafate Oral Suspension -) 1 gm PO TID KILLIAN Stop: 11/20/17 21:59 Last Admin: 11/18/17 05:56 Dose: 1 gm Laboratory Results - last 24 hr 11/16/17 11/17/17 11/17/17 21:40 17:00 23:15 WBC 6.5 9.9 RBC 2.78 L 2.57 L Hgb 8.5 L 7.8 L Hct 25.2 L D 23.0 L MCV 90.7 89.4 MCH 30.6 30.3 MCHC 33.8 33.9 RDW 14.0 14.4 Plt Count 166 165 MPV 9.0 8.9 Absolute Neuts (auto) 4.2 Neutrophils % 63.7 D Lymphocytes % 25.0 D Monocytes % 8.4 Eosinophils % 2.5 Basophils % 0.4 Nucleated RBC % 0 PT with INR INR PTT (Actin FS) Sodium Potassium Chloride Carbon Dioxide Anion Gap BUN Creatinine Creat Clearance w eGFR Random Glucose Calcium Phosphorus Magnesium Blood Type O POSITIVE Antibody Screen Negative Crossmatch See Detail 11/18/17 11/18/17 11/18/17 07:50 07:50 07:50 WBC 9.8 RBC 2.86 L Hgb 8.6 L Hct 25.6 L MCV 89.3 MCH 30.2 MCHC 33.8 RDW 14.1 Plt Count 141 MPV 8.8 Absolute Neuts (auto) 6.7 Neutrophils % 68.9 Lymphocytes % 21.8 Monocytes % 7.2 Eosinophils % 1.4 Basophils % 0.7 Nucleated RBC % 0 PT with INR 14.10 H INR 1.25 H PTT (Actin FS) 32.1 Sodium 144 Potassium 3.7 Chloride 112 H Carbon Dioxide 22 Anion Gap 9 BUN 8 Creatinine 0.7 Creat Clearance w eGFR > 60 Random Glucose 78 Calcium 7.8 L Phosphorus 3.1 Magnesium 2.1 Blood Type Antibody Screen Crossmatch ASSESSMENT AND PLAN: 82 yof with PMHx of low grade invasive adenoca (tubulovillous polyp) s/p right hemicolectomy 04/2013, last surveillance colonoscopy in 2015 with reported EUS, also with diverticulosis, HTN admitted with hematochezia. -Acute gastrointestinal haemorrhage, likely lower, diverticular bleed vs less likely recurrent malignancy/Bleeding from anastomotic vessel, unlikely to be upper GI bleed -Acute blood loss anemia s/p 2 units PRBC -Low grade invasive adenoca (tubulovillous polyp) s/p right hemicolectomy 04/2013 -HTN -Prolonged QTc Plan: Follow up final EGD/colonscopy results. GI input noted. H/H BID, clears as tolerated. Discuss with GI if can d/c protonix drip/sucralfate. If persistent bleed or drop in H/h, bleeding scan. Resume toprol as hemodynamics tolerate. Cardiology input appreciated DVTPPX with SCDs Dispo agree with transfer out of ICU. Plan discussed with patient in detail, all questions answered. Total critical care time spent in ICU 35 min.
[2017-11-18] MEDS ORDERED: POTASSIUM CHLORIDE TABS 20 MEQ TABLET.ER (FP) PO ONE ×2 (14:00→16:00)
--- NOTE | 2017-11-18 14:23 | PN ---
Physical Exam: SUBJECTIVE: Patient seen and examined at bedside this morning. Patient was noted to have Hgb of 7.8 last night, and 1 pRBC transfused to keep Hgb >8. Patient reports minimal bleeding with bowel movements. Otherwise, denies shortness of breath, palpitations, fevers, chills, headache, dizziness. OBJECTIVE: Vital Signs Period Temp Pulse Resp BP Sys/Cordon Pulse Ox Last 24 Hr 97.9 F-99.6 F 62-86 14-34 121-157/53-86 98-100 GENERAL: The patient is awake, alert, and fully oriented, in no acute distress. HEAD: Normal with no signs of trauma. EYES: PERRLA, EOMI, sclera anicteric, conjunctiva clear. ENT: Ears normal, nares patent, oropharynx clear without exudates, moist mucous membranes. NECK: Trachea midline, full range of motion, supple. LUNGS: Breath sounds equal, clear to auscultation bilaterally, no accessory muscle use. HEART: Regular rate and rhythm, S1, S2 without murmur, rub or gallop. ABDOMEN: Soft, nontender, nondistended, normoactive bowel sounds. EXTREMITIES: 2+ pulses, warm, well-perfused, no edema. NEUROLOGICAL: Cranial nerves II through XII grossly intact. Normal speech, gait not observed. PSYCH: Normal mood, normal affect. SKIN: Warm, dry, normal turgor, no rashes or lesions noted Laboratory Results - last 24 hr 11/16/17 11/17/17 11/17/17 21:40 17:00 23:15 WBC 6.5 9.9 RBC 2.78 L 2.57 L Hgb 8.5 L 7.8 L Hct 25.2 L D 23.0 L MCV 90.7 89.4 MCH 30.6 30.3 MCHC 33.8 33.9 RDW 14.0 14.4 Plt Count 166 165 MPV 9.0 8.9 Absolute Neuts (auto) 4.2 Neutrophils % 63.7 D Lymphocytes % 25.0 D Monocytes % 8.4 Eosinophils % 2.5 Basophils % 0.4 Nucleated RBC % 0 PT with INR INR PTT (Actin FS) Sodium Potassium Chloride Carbon Dioxide Anion Gap BUN Creatinine Creat Clearance w eGFR Random Glucose Calcium Phosphorus Magnesium Blood Type O POSITIVE Antibody Screen Negative Crossmatch See Detail 11/18/17 11/18/1718 07:50 07:50 07:50 WBC 9.8 RBC 2.86 L Hgb 8.6 L Hct 25.6 L MCV 89.3 MCH 30.2 MCHC 33.8 RDW 14.1 Plt Count 141 MPV 8.8 Absolute Neuts (auto) 6.7 Neutrophils % 68.9 Lymphocytes % 21.8 Monocytes % 7.2 Eosinophils % 1.4 Basophils % 0.7 Nucleated RBC % 0 PT with INR 14.10 H INR 1.25 H PTT (Actin FS) 32.1 Sodium 144 Potassium 3.7 Chloride 112 H Carbon Dioxide 22 Anion Gap 9 BUN 8 Creatinine 0.7 Creat Clearance w eGFR > 60 Random Glucose 78 Calcium 7.8 L Phosphorus 3.1 Magnesium 2.1 Blood Type Antibody Screen Crossmatch Active Medications Generic Name Dose Route Start Last Admin Trade Name Freq PRN Reason Stop Dose Admin Chlorhexidine Gluconate 1 applic 11/17/17 22:00 11/17/17 21:42 Hibiclens For Decolonization - TP 1 applic HS KILLIAN Administration Pantoprazole Sodium 160 mg/ 290 mls @ 14.5 mls/hr 11/18/17 01:30 11/18/17 01: 30 Dextrose IVPB 14.5 mls/hr Q20H KILLIAN Administration Lactated Ringer's 1,000 ml in 1,000 mls @ 75 mls/hr 11/18/17 09:15 11/18/17 09:15 Lactated Ringers Solution IV 75 mls/hr ASDIR KILLIAN Administration Mupirocin 1 applic 11/17/17 22:00 11/18/17 11:33 Bactroban Ointment (For Decolonization) - NS 11/22/17 21:59 1 applic BID KILLIAN Administration Sucralfate 1 gm 11/17/17 22:00 11/18/17 13:21 Carafate Oral Suspension - PO 11/20/17 21:59 1 gm TID KILLIAN Administration ASSESSMENT/PLAN: Patient is an 82 year old female with past medical history of Colon cancer s/p right hemicolectomy (2013), Diverticulosis, Internal hemorrhoids, CVA (April 2017), and melanoma of the left foot, presented with bright red blood per rectum that started 3 days ago. #Bright red blood per rectum -s/p EGD/colonoscopy: Gastritis, Diverticulosis -GI (Dr. Geller) consulted. Recommendations appreciated. -s/p 2 units pRBCs, repeat Hgb 8.6 -Monitor H/H BID -Continue observation. If continued rectal bleeding, obtain bleeding scans. -Carafate 1 gm TID for distal esophageal rent. -Surgery (Dr. Spears) consulted. Recommendations appreciated. #Anemia: likely 2/2 to active GI bleeding -Hgb 7.8 last night, patient received 1 unit pRBC -H/H BID -As per cardiology, will maintain Hgb >8. #Hypertension -BP controlled. -Hold home antihypertensives for now. -Will monitor BP closely. -Will resume Toprol XL 25mg daily as hemodynamics tolerate once oral intake resumed. #Prolonged QT interval -EKG shows Normal sinus rhythm at 68 beats per minute. Right bundle branch block and t-wave inversions noted, unchanged from prior study in 04/2017. QT434/ QTC 461. -Cardiology (Dr. Ruiz) consulted. Recommendations appreciated. #FEN -Not on any standing fluids. -Encourage increased oral fluid intake. -Electrolytes within normal limits. Routine bmp monitoring. -Advanced to clear liquids. #Prophylaxis -SCDs b/l lower extremities. No heparin/ lovenox due to active bleeding per rectum. #Disposition -transfer to med-surg Visit type - Emergency Visit Emergency Visit: Yes ED Registration Date: 11/15/17 Care time: The patient presented to the Emergency Department on the above date and was hospitalized for further evaluation of their emergent condition. - New Patient This patient is new to me today: Yes Date on this admission: 11/18/17 - Critical Care Critical Care patient: No
--- NOTE | 2017-11-18 14:24 | PN ---
Physical Exam: SUBJECTIVE: Patient seen and examined. Pt. received 1 unit pRBCs this morning for a total of 2 units overall. Pt. had a small bloody(BRBPR w/ clots) bowel movement. Pt. spiked a temperature to 100.7 yesterday and was given Tylenol to good effect. Pt. was NPO overnight. Pt. denied dizziness, lightheadedness, chest pain, abdominal pain, palpitations, shortness of breath or numbness and tingling in the extremities that is increased from her baseline numbness. OBJECTIVE: Vital Signs Period Temp Pulse Resp BP Sys/Cordon Pulse Ox Last 24 Hr 97.9 F-99.6 F 62-86 14-34 121-157/53-86 98-100 GENERAL: The patient is awake, alert, and fully oriented, sitting up in no acute distress. EYES: sclera anicteric, conjunctiva clear. No ptosis. ENT: Ears normal, nares patent, oropharynx clear without exudates, moist mucous membranes. NECK: Trachea midline, full range of motion, supple. LUNGS: Bibasilar crackles, no accessory muscle use. HEART: Regular rate and rhythm, S1, S2 without murmur ABDOMEN: Soft, nontender, nondistended, normoactive bowel sounds, no guarding, no rebound EXTREMITIES: 1+ dorsal pedal pulses, warm, well-perfused, no edema, residual left sided weakness. NEUROLOGICAL: Capillary refill less than 2 seconds, Normal speech, gait not observed. PSYCH: Normal mood, normal affect. SKIN: Warm, dry, normal turgor Laboratory Results - last 24 hr 11/16/17 11/17/17 11/17/17 21:40 17:00 23:15 WBC 6.5 9.9 RBC 2.78 L 2.57 L Hgb 8.5 L 7.8 L Hct 25.2 L D 23.0 L MCV 90.7 89.4 MCH 30.6 30.3 MCHC 33.8 33.9 RDW 14.0 14.4 Plt Count 166 165 MPV 9.0 8.9 Absolute Neuts (auto) 4.2 Neutrophils % 63.7 D Lymphocytes % 25.0 D Monocytes % 8.4 Eosinophils % 2.5 Basophils % 0.4 Nucleated RBC % 0 PT with INR INR PTT (Actin FS) Sodium Potassium Chloride Carbon Dioxide Anion Gap BUN Creatinine Creat Clearance w eGFR Random Glucose Calcium Phosphorus Magnesium Blood Type O POSITIVE Antibody Screen Negative Crossmatch See Detail 11/18/17 11/18/17 11/18/17 07:50 07:50 07:50 WBC 9.8 RBC 2.86 L Hgb 8.6 L Hct 25.6 L MCV 89.3 MCH 30.2 MCHC 33.8 RDW 14.1 Plt Count 141 MPV 8.8 Absolute Neuts (auto) 6.7 Neutrophils % 68.9 Lymphocytes % 21.8 Monocytes % 7.2 Eosinophils % 1.4 Basophils % 0.7 Nucleated RBC % 0 PT with INR 14.10 H INR 1.25 H PTT (Actin FS) 32.1 Sodium 144 Potassium 3.7 Chloride 112 H Carbon Dioxide 22 Anion Gap 9 BUN 8 Creatinine 0.7 Creat Clearance w eGFR > 60 Random Glucose 78 Calcium 7.8 L Phosphorus 3.1 Magnesium 2.1 Blood Type Antibody Screen Crossmatch Active Medications Current Medications Chlorhexidine Gluconate (Hibiclens For Decolonization -) 1 applic TP HS [facility] Last Admin: 11/17/17 21:42 Dose: 1 applic Pantoprazole Sodium 160 mg/ (Dextrose) 290 mls @ 14.5 mls/hr IVPB Q20H [facility] Last Admin: 11/18/17 01:30 Dose: 14.5 mls/hr Lactated Ringer's (Lactated Ringers Solution) 1,000 ml in 1,000 mls @ 75 mls/ hr IV ASDIR [facility] Last Admin: 11/18/17 09:15 Dose: 75 mls/hr Mupirocin (Bactroban Ointment (For Decolonization) -) 1 applic NS BID [facility] Stop: 11/22/17 21:59 Last Admin: 11/18/17 11:33 Dose: 1 applic Sucralfate (Carafate Oral Suspension -) 1 gm PO TID [facility] Stop: 11/20/17 21:59 Last Admin: 11/18/17 13:21 Dose: 1 gm ASSESSMENT/PLAN: A, 82 y.o. 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 #Gastroenterology -BRBPR EGD and colonoscopy found a small tear in the esophageal mucosa that occurred from coughing, mild gastritis in the antrum and normal mucosa throughout the stomach, duodenal bulb, 2nd part of the duodenum; moderate diverticulosis in left and sigmoid colon, 6mm sigmoid polyp(not removed due to current bleed), small internal hemorrhoids, and pooled blood throughout colon. Monitor for recurring bleeds, if bleeding noted or if HgB drops significantly will order Bleeding scan, which has higher sensitivity for slow bleeds over CTA. c/w Protonix 160mg IV (8mg/hr) c/w Sucralfate 1gm Q8H #Cardiovascular -Anemia 2/2 acute blood loss monitor H/H BID- HgB: 8.6 <---7.8 transfuse if HgB is less than 8.0 Hold NSAIDS and ASA #F/E/N -Diet advanced to clears -Monitor electrolytes and replete as needed -LR @ 75ml/hr #DVT Ppx. -SCDs Visit type - Emergency Visit Emergency Visit: Yes ED Registration Date: 11/15/17 Care time: The patient presented to the Emergency Department on the above date and was hospitalized for further evaluation of their emergent condition. - New Patient This patient is new to me today: Yes Date on this admission: 11/18/17 - Critical Care Critical Care patient: No - Discharge Referral Referred to [facility] Med P.C.: No
--- NOTE | 2017-11-18 14:35 | PN ---
Teaching Attending Note Name of Resident: Jamel Muñoz ATTENDING PHYSICIAN STATEMENT I saw and evaluated the patient. I reviewed the resident's note and discussed the case with the resident. I agree with the resident's findings and plan as documented. SUBJECTIVE: Patient seen and examined in the ICU. Awake and alert. No occult bleeding noted overnight. No CP or SOB. H&H remains relatively stable. Intake & Output 11/15/17 11/16/17 11/17/17 11/18/17 23:59 23:59 23:59 23:59 Intake Total 2160 550 1025 Output Total 800 Balance 2160 550 225 Weight 146 lb 9 oz 143 lb 8 oz Last Vital Signs Temp Pulse Resp BP Pulse Ox 98.3 F 81 20 125/86 98 11/18/17 10:00 11/18/17 12:00 11/18/17 12:00 11/18/17 12:00 11/18/17 09:00 Active Medications Chlorhexidine Gluconate (Hibiclens For Decolonization -) 1 applic TP HS [facility] Last Admin: 11/17/17 21:42 Dose: 1 applic Pantoprazole Sodium 160 mg/ (Dextrose) 290 mls @ 14.5 mls/hr IVPB Q20H [facility] Last Admin: 11/18/17 01:30 Dose: 14.5 mls/hr Lactated Ringer's (Lactated Ringers Solution) 1,000 ml in 1,000 mls @ 75 mls/ hr IV ASDIR [facility] Last Admin: 11/18/17 09:15 Dose: 75 mls/hr Mupirocin (Bactroban Ointment (For Decolonization) -) 1 applic NS BID [facility] Stop: 11/22/17 21:59 Last Admin: 11/18/17 11:33 Dose: 1 applic Sucralfate (Carafate Oral Suspension -) 1 gm PO TID [facility] Stop: 11/20/17 21:59 Last Admin: 11/18/17 13:21 Dose: 1 gm General: Awake and alert, no acute distress HEENT: PERRL, EOMI, Cards: S1S2 regular Pulm: Clear Abd: Soft, nontender, nondistended Ext: (+) PP, (-) edema Skin: Normal color, no rashes or lesions Neuro: A&Ox3, non-focal Psych: Mood appropriate ASSESSMENT/PLAN: Acute GI Bleed: source not determined on endoscopic evaluation History of colon CA S/P right hemicolectomy TIA HTN Normal transfusion thresholds SCDs Monitor I & O O2 as needed PO when OK with GI PPI Will need to address when anti-platelet can be started with GI Dr Downey Critical care time spent in reviewing chart, evaluating patient and formulating plan - 36 minutes.
[2017-11-18 20:32] LABS: HEMATOCRIT 23.9 % (32.4-45.2); HEMOGLOBIN 8.1 GM/dL (10.7-15.3); MCH 30.5 pg (25.7-33.7); MCHC 33.8 g/dl (32.0-36.0); MEAN CELL VOLUME 90.1 fl (80-96); MEAN PLT VOLUME 9.9 fl (7.5-11.1); PLATELET COUNT 158 K/MM3 (134-434); RBC 2.66 M/mm3 (3.60-5.2); RDW 14.4 % (11.6-15.6); WHITE BLOOD COUNT 7.7 K/mm3 (4.0-10.0)
[2017-11-18] MEDS: CHLORHEXIDINE GLUCONATE 4% CLEANSER FOR DECOLONIZATION TP SCH (21:29)
[2017-11-19 06:30] LABS: HEMATOCRIT 22.8 % (32.4-45.2); HEMOGLOBIN 7.7 GM/dL (10.7-15.3); MCH 30.2 pg (25.7-33.7); MCHC 33.7 g/dl (32.0-36.0); MEAN CELL VOLUME 89.4 fl (80-96); MEAN PLT VOLUME 9.2 fl (7.5-11.1); PLATELET COUNT 144 K/MM3 (134-434); RBC 2.56 M/mm3 (3.60-5.2); RDW 14.1 % (11.6-15.6); WHITE BLOOD COUNT 6.7 K/mm3 (4.0-10.0)
[2017-11-19 07:01] LABS: ANION GAP 5 MMOL/L (8-16); BLOOD UREA NITROGEN 8 mg/dL (7-18); CALCIUM 7.4 mg/dL (8.5-10.1); CHLORIDE 114 mmol/L (98-107); CO2 26 mmol/L (21-32); CREATININE 0.7 mg/dL (0.55-1.3); GLUCOSE,RANDOM 85 mg/dL (74-106); MAGNESIUM 1.9 mg/dL (1.8-2.4); SODIUM 144 mmol/L (136-145)
[2017-11-19] MEDS: PANTOPRAZOLE SODIUM 160 MG in DEXTROSE 5%-WATER - 290 ML IVPB SCH (07:18)
[2017-11-19] MEDS: SUCRALFATE 1 GM/10 ML UNIT DOSE CUPS PO SCH ×3 (07:20→21:04)
[2017-11-19] MEDS ORDERED: POTASSIUM PHOSPHATE 30 MM in SODIUM CHLORIDE 250 ML IVPB ONE (09:00)
[2017-11-19] MEDS: PANTOPRAZOLE 40 MG TABLET (FP) PO SCH (09:34)
[2017-11-19] MEDS: LACTATED RINGERS SOLUTION 1,000 ML/1,000 ML INFUS.BAG IV SCH (09:34)
[2017-11-19] MEDS: MUPIROCIN 2% TOPICAL OINTMENT FOR DECOLONIZATION NS SCH (10:00)
[2017-11-19] MEDS ORDERED: metoPROLOL SUCCINATE 25 MG TAB.SR.24H (FP) PO SCH (10:00)
[2017-11-19] MEDS ORDERED: PT OWN MED DRAWER 7, Y5N ONE (11:39)
[2017-11-19 12:51] VITALS: BMI 27.9
--- NOTE | 2017-11-19 13:01 | PN ---
Teaching Attending Note Name of Resident: Jamel Muñoz ATTENDING PHYSICIAN STATEMENT I saw and evaluated the patient. I reviewed the resident's note and discussed the case with the resident. I agree with the resident's findings and plan as documented. SUBJECTIVE: Pt seen and examined in the ICU. Brown bowel movement overnight. H/H mildly decreased this AM, receiving 1 unit PRBC. Tolerating full liquids. OBJECTIVE: Vital Signs Period Temp Pulse Resp BP Sys/Cordon Pulse Ox Last 24 Hr 98.2 F-98.6 F 67-87 18-20 118-163/58-75 98 Intake & Output 11/16/17 11/17/17 11/18/17 11/19/17 23:59 23:59 23:59 23:59 Intake Total 2160 550 2259 Output Total 800 Balance 2160 550 1459 Weight 65.091 kg 64.864 kg Gen: NAD in chair Heart: RRR, +systolic murmur Lung: decreased breath sounds at the bases Abd: soft, nontender Ext: no edema CBC, BMP 11/19/17 05:30 11/19/17 05:30 Active Medications Chlorhexidine Gluconate (Hibiclens For Decolonization -) 1 applic TP HS [facility] Last Admin: 11/18/17 21:29 Dose: 1 applic Lactated Ringer's (Lactated Ringers Solution) 1,000 ml in 1,000 mls @ 75 mls/ hr IV ASDIR [facility] Last Admin: 11/19/17 09:34 Dose: 75 mls/hr Metoprolol Succinate (Toprol Xl -) 25 mg PO BID [facility] Last Admin: 11/19/17 09:33 Dose: 25 mg Mupirocin (Bactroban Ointment (For Decolonization) -) 1 applic NS BID [facility] Stop: 11/22/17 21:59 Last Admin: 11/18/17 22:00 Dose: 1 applic Pantoprazole Sodium (Protonix -) 40 mg PO DAILY [facility] Last Admin: 11/19/17 09:34 Dose: 40 mg Sucralfate (Carafate Oral Suspension -) 1 gm PO TID [facility] Stop: 11/20/17 21:59 Last Admin: 11/19/17 07:20 Dose: 1 gm ASSESSMENT AND PLAN: GI Bleed Acute Blood Loss Anemia HTN h/o TIA - monitor H/H - transfuse as needed - protonix - CTA A/P if develops acute bleeding - PO per GI - DVT prophylaxis - can monitor on floor
--- NOTE | 2017-11-19 13:29 | PN ---
Progress Note, Physician History of Present Illness: PCP: Dr. Arias [facility] No further hematochezia, denies abd pain, chest pain or dyspnea, receiving 1 U pRBC for decreased Hgb. Tolerating clear liquid diet. - Current Medication List Current Medications: Active Medications Chlorhexidine Gluconate (Hibiclens For Decolonization -) 1 applic TP HS [facility] Last Admin: 11/18/17 21:29 Dose: 1 applic Lactated Ringer's (Lactated Ringers Solution) 1,000 ml in 1,000 mls @ 75 mls/ hr IV ASDIR [facility] Last Admin: 11/19/17 09:34 Dose: 75 mls/hr Metoprolol Succinate (Toprol Xl -) 25 mg PO BID [facility] Last Admin: 11/19/17 09:33 Dose: 25 mg Mupirocin (Bactroban Ointment (For Decolonization) -) 1 applic NS BID [facility] Stop: 11/22/17 21:59 Last Admin: 11/18/17 22:00 Dose: 1 applic Pantoprazole Sodium (Protonix -) 40 mg PO DAILY [facility] Last Admin: 11/19/17 09:34 Dose: 40 mg Sucralfate (Carafate Oral Suspension -) 1 gm PO TID [facility] Stop: 11/20/17 21:59 Last Admin: 11/19/17 07:20 Dose: 1 gm - Objective Vital Signs: Vital Signs Temperature 98.6 F 11/19/17 10:00 Pulse Rate 76 11/19/17 12:00 Respiratory Rate 20 11/19/17 12:00 Blood Pressure 146/79 11/19/17 12:00 O2 Sat by Pulse Oximetry (%) 98 11/18/17 20:30 Constitutional: Yes: No Distress, Calm, Thin Neck: Yes: Supple Cardiovascular: Yes: Regular Rate and Rhythm, Murmur (2/6 SM) Respiratory: Yes: Regular, CTA Bilaterally Gastrointestinal: Yes: Normal Bowel Sounds, Soft Edema: No Labs: CBC, BMP 11/19/17 05:30 11/19/17 05:30 INR, PTT INR 1.25 (0.83-1.09) H 11/18/17 07:50 Problem List - Problems (1) TIA (transient ischemic attack) Code(s): G45.9 - TRANSIENT CEREBRAL ISCHEMIC ATTACK, UNSPECIFIED (2) Rectal bleeding Code(s): K62.5 - HEMORRHAGE OF ANUS AND RECTUM (3) HTN (hypertension) Code(s): I10 - ESSENTIAL (PRIMARY) HYPERTENSION Qualifiers: Hypertension type: essential hypertension Qualified Code(s): I10 - Essential (primary) hypertension (4) Anemia Code(s): D64.9 - ANEMIA, UNSPECIFIED Qualifiers: Anemia type: iron deficiency Iron deficiency anemia type: chronic blood loss Qualified Code(s): D50.0 - Iron deficiency anemia secondary to blood loss (chronic) (5) Right bundle branch block Code(s): I45.10 - UNSPECIFIED RIGHT BUNDLE-BRANCH BLOCK Assessment/Plan 1. Painless rectal bleeding, probably diverticular bleed is suspect 2. HTN 3. Abnormal EKG - RBBB 4. 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 History TIA/transient ischemic attack 6. Anemia related to the above bleed PLAN: 1. Monitor Hg and transfuse to maintain equal or > 8.0 2. Continue Toprol XL 25 bid as hemodynamics tolerate and resume ASA 81 qd once hemostasis achieved 3. GI protection 4. Bleeding scan if recurs
--- NOTE | 2017-11-19 15:33 | PN ---
Physical Exam: SUBJECTIVE: Patient seen and examined. No acute events overnight. Pt. endorses have multiple non-bloody bowel movements, denied any blood on tissue paper after wiping. Pt. endorses being hungry. Pt. denies shortness of breath, chest pain, abdominal pain, nausea or vomiting at this time. Pt. denies any other complaints other than hunger for food. Pt. received 1 unit of pRBCs this morning and repeat Hgb was 10.1. OBJECTIVE: Vital Signs Period Temp Pulse Resp BP Sys/Cordon Pulse Ox Last 24 Hr 98.6 F-98.6 F 67-79 18-20 118-163/58-79 98-98 GENERAL: The patient is awake, alert, and fully oriented, sitting up in no acute distress. EYES: sclera anicteric, conjunctiva clear. No ptosis. ENT: Ears normal, nares patent, moist mucous membranes. LUNGS: mild bibasilar crackles, no accessory muscle use. HEART: Regular rate and rhythm, S1, S2 without murmur, rub or gallop. ABDOMEN: Soft, nontender, nondistended, normoactive bowel sounds, no guarding, no rebound EXTREMITIES: 2+ pulses, warm, well-perfused, no edema, no calf tenderness, capillary refill less than 2 seconds. NEUROLOGICAL: Normal speech, gait not observed. PSYCH: Normal mood, normal affect. SKIN: Warm, dry, normal turgor, no rashes or lesions noted Laboratory Results - last 24 hr 11/16/17 11/18/17 11/19/17 21:40 20:10 05:30 WBC 7.7 6.7 RBC 2.66 L 2.56 L Hgb 8.1 L 7.7 L Hct 23.9 L 22.8 L MCV 90.1 89.4 MCH 30.5 30.2 MCHC 33.8 33.7 RDW 14.4 14.1 Plt Count 158 144 MPV 9.9 D 9.2 Sodium Potassium Chloride Carbon Dioxide Anion Gap BUN Creatinine Creat Clearance w eGFR Random Glucose Calcium Phosphorus Magnesium Blood Type O POSITIVE Antibody Screen Negative Crossmatch See Detail 11/19/17 05:30 WBC RBC Hgb Hct MCV MCH MCHC RDW Plt Count MPV Sodium 144 Potassium 4.0 Chloride 114 H Carbon Dioxide 26 Anion Gap 5 L BUN 8 Creatinine 0.7 Creat Clearance w eGFR > 60 Random Glucose 85 Calcium 7.4 L Phosphorus 2.0 L Magnesium 1.9 Blood Type Antibody Screen Crossmatch Active Medications Current Medications Chlorhexidine Gluconate (Hibiclens For Decolonization -) 1 applic TP HS [facility] Last Admin: 11/18/17 21:29 Dose: 1 applic Metoprolol Succinate (Toprol Xl -) 25 mg PO BID [facility] Last Admin: 11/19/17 09:33 Dose: 25 mg Mupirocin (Bactroban Ointment (For Decolonization) -) 1 applic NS BID [facility] Stop: 11/22/17 21:59 Last Admin: 11/19/17 10:00 Dose: 1 applic Pantoprazole Sodium (Protonix -) 40 mg PO DAILY [facility] Last Admin: 11/19/17 09:34 Dose: 40 mg Sucralfate (Carafate Oral Suspension -) 1 gm PO TID [facility] Stop: 11/20/17 21:59 Last Admin: 11/19/17 14:11 Dose: 1 gm ASSESSMENT/PLAN: An 82 y.o. 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 #Gastroenterology -BRBPR EGD and colonoscopy found a small tear in the esophageal mucosa that occurred from coughing, mild gastritis in the antrum and normal mucosa throughout the stomach, duodenal bulb, 2nd part of the duodenum; moderate diverticulosis in left and sigmoid colon, 6mm sigmoid polyp(not removed due to current bleed), small internal hemorrhoids, and pooled blood throughout colon. Monitor for recurring bleeds, if bleeding noted or if HgB drops significantly will order Bleeding scan, which has higher sensitivity for slow bleeds over CTA. c/w Protonix 160mg IV (8mg/hr) c/w Sucralfate 1gm Q8H #Cardiovascular -Anemia 2/2 acute blood loss monitor H/H BID- HgB: 8.6 --->7.7--->10.[address] Geller-decided against bleeding scan at this time, as Pt. only mildly dropped HgB and scan would not be definitive at this time. Will hold off with bleeding scan or CTA unless Pt. has a significant drop in HgB or has a large bloody bowel movement received 1 unit pRBC 11/19/17,Rpt. CBC showed HgB of 10.1 transfuse if HgB is less than 8.0 Hold NSAIDS and ASA -HTN c/w Metoprolol 25mg BID #F/E/N -Diet advanced to clears, will consider advancing to full liquids tomorrow. -Monitor electrolytes and replete as needed -D/c IVF, encourage PO intake #DVT Ppx. -SCDs
[2017-11-19 16:23] LABS: HEMATOCRIT 31.7 % (32.4-45.2); HEMOGLOBIN 10.7 GM/dL (10.7-15.3); MCH 30.3 pg (25.7-33.7); MCHC 33.6 g/dl (32.0-36.0); MEAN CELL VOLUME 90.1 fl (80-96); PLATELET COUNT 141 K/MM3 (134-434); RBC 3.52 M/mm3 (3.60-5.2); RDW 14.5 % (11.6-15.6); WHITE BLOOD COUNT 7.1 K/mm3 (4.0-10.0)
--- NOTE | 2017-11-19 17:45 | PATH ---
Surgical Pathology Report Patient Name: [facility]. Rec. #: [id number] /Age/Gender: 1935 (Age: 82) / F Account: [id number] Location: ICU FIELD SUPPORT SPECIALIST Taken: 11/17/2017 Received: 11/18/2017 Reported: 11/19/2017 Physicians: Sada May M.D. Specimen(s) Received BX ANTRUM Clinical History Anemia, rectal bleeding, diverticulosis Final Diagnosis ANTRUM, BIOPSY: GASTRIC MUCOSA SHOWING CHRONIC GASTRITIS WITH INTESTINAL METAPLASIA. IMMUNOSTAIN IS NEGATIVE FOR H. PYLORI ORGANISMS. Electronically Signed Cha Burnett M.D. Gross Description Received in formalin, labeled "antrum" are 2 monet, irregular portions of soft tissue measuring 0.5 cm. in greatest dimension. The specimen is submitted in toto in one cassette. RAIMUNDO/11/18/2017 giovanni/11/18/2017
--- NOTE | 2017-11-19 17:54 | PN ---
Physical Exam: SUBJECTIVE: Patient seen and examined at bedside this morning. Patient has no new complaints and reports non-bloody bowel movements. No acute events overnight. Patient has no new complaints. OBJECTIVE: Vital Signs Period Temp Pulse Resp BP Sys/Cordon Pulse Ox Last 24 Hr 98.6 F-98.8 F 61-79 17-20 118-163/58-84 98-98 GENERAL: The patient is awake, alert, and fully oriented, in no acute distress. HEAD: Normal with no signs of trauma. EYES: PERRLA, EOMI, sclera anicteric, conjunctiva clear. ENT: Ears normal, nares patent, oropharynx clear without exudates, moist mucous membranes. NECK: Trachea midline, full range of motion, supple. LUNGS: Breath sounds equal, clear to auscultation bilaterally, no accessory muscle use. HEART: Regular rate and rhythm, S1, S2 without murmur, rub or gallop. ABDOMEN: Soft, nontender, nondistended, normoactive bowel sounds. EXTREMITIES: 2+ pulses, warm, well-perfused, no edema. NEUROLOGICAL: Cranial nerves II through XII grossly intact. Normal speech, gait not observed. PSYCH: Normal mood, normal affect. SKIN: Warm, dry, normal turgor, no rashes or lesions noted Laboratory Results - last 24 hr 11/16/17 11/18/17 11/19/17 21:40 20:10 05:30 WBC 7.7 6.7 RBC 2.66 L 2.56 L Hgb 8.1 L 7.7 L Hct 23.9 L 22.8 L MCV 90.1 89.4 MCH 30.5 30.2 MCHC 33.8 33.7 RDW 14.4 14.1 Plt Count 158 144 MPV 9.9 D 9.2 Sodium Potassium Chloride Carbon Dioxide Anion Gap BUN Creatinine Creat Clearance w eGFR Random Glucose Calcium Phosphorus Magnesium Blood Type O POSITIVE Antibody Screen Negative Crossmatch See Detail 11/19/17 11/19/17 05:30 15:10 WBC 7.1 RBC 3.52 L Hgb 10.7 Hct 31.7 L D MCV 90.1 MCH 30.3 MCHC 33.6 RDW 14.5 Plt Count 141 MPV 10.0 Sodium 144 Potassium 4.0 Chloride 114 H Carbon Dioxide 26 Anion Gap 5 L BUN 8 Creatinine 0.7 Creat Clearance w eGFR > 60 Random Glucose 85 Calcium 7.4 L Phosphorus 2.0 L Magnesium 1.9 Blood Type Antibody Screen Crossmatch Active Medications Generic Name Dose Route Start Last Admin Trade Name Greg PRN Reason Stop Dose Admin Chlorhexidine Gluconate 1 applic 11/17/17 22:00 11/18/17 21:29 Hibiclens For Decolonization - TP 1 applic HS KILLIAN Administration Metoprolol Succinate 25 mg 11/19/17 10:00 11/19/17 09:33 Toprol Xl - PO 25 mg BID KILLIAN Administration Mupirocin 1 applic 11/17/17 22:00 11/19/17 10:00 Bactroban Ointment (For Decolonization) - NS 11/22/17 21:59 1 applic BID KILLIAN Administration Pantoprazole Sodium 40 mg 11/19/17 10:00 11/19/17 09:34 Protonix - PO 40 mg DAILY KILLIAN Administration Sucralfate 1 gm 11/17/17 22:00 11/19/17 14:11 Carafate Oral Suspension - PO 11/20/17 21:59 1 gm TID KILLIAN Administration ASSESSMENT/PLAN: Patient is an 82 year old female with past medical history of Colon cancer s/p right hemicolectomy (2013), Diverticulosis, Internal hemorrhoids, CVA (April 2017), and melanoma of the left foot, presented with bright red blood per rectum that started 3 days ago. #Bright red blood per rectum -s/p EGD/colonoscopy: Gastritis, Diverticulosis -GI (Dr. Geller) consulted. Recommendations appreciated. -s/p 1 unit pRBC today, Hgb 7.7 --> 10.1 -Monitor H/H BID -Transfuse to maintain Hgb >8 -Continue observation. -If with no overt bleeding and H/H remains stable, may advance diet in the morning. -Carafate 1 gm TID. -Protonix 160mg IV -Surgery (Dr. Spears) consulted. Recommendations appreciated. #Anemia: likely 2/2 to active GI bleeding -Hgb 7.8 last night, patient received 1 unit pRBC -H/H BID -As per cardiology, will maintain Hgb >8. #Hypertension -BP controlled. -Hold home antihypertensives for now. -Will monitor BP closely. -Will resume Toprol XL 25mg daily as hemodynamics tolerate once oral intake resumed. #Prolonged QT interval -EKG shows Normal sinus rhythm at 68 beats per minute. Right bundle branch block and t-wave inversions noted, unchanged from prior study in 04/2017. QT434/ QTC 461. -Cardiology (Dr. Ruiz) consulted. Recommendations appreciated. #FEN -Not on any standing fluids. -Encourage increased oral fluid intake. -Electrolytes within normal limits. Routine bmp monitoring. -Continue clear liquids for tonight. #Prophylaxis -SCDs b/l lower extremities. No heparin/lovenox due to active bleeding per rectum. #Disposition -transfer to med-surg Visit type - Emergency Visit Emergency Visit: Yes ED Registration Date: 11/15/17 Care time: The patient presented to the Emergency Department on the above date and was hospitalized for further evaluation of their emergent condition. - New Patient This patient is new to me today: Yes Date on this admission: 11/19/17 - Critical Care Critical Care patient: Yes Total Critical Care Time (in minutes): 40 Critical Care Statement: The care of this patient involved high complexity decision making to prevent further life threatening deterioration of the patient 's condition and/or to evaluate & treat vital organ system(s) failure or risk of failure.
--- NOTE | 2017-11-19 18:13 | PN ---
GI Progress Note Subjective: States feeling well No overt bleeding Received 1 U PRBC today - Objective Vital Signs: Vital Signs Temperature 98.8 F 11/19/17 16:53 Pulse Rate 61 11/19/17 16:53 Respiratory Rate 17 11/19/17 16:53 Blood Pressure 158/73 11/19/17 16:53 O2 Sat by Pulse Oximetry (%) 98 11/19/17 09:00 Constitutional: Calm Eyes: No: Sclera Icterus Cardiovascular: Yes: Regular Rate and Rhythm Respiratory: Yes: CTA Bilaterally ...Auscultate: Yes: Normoactive Bowel Sounds ...Percussion: No: Tympanitic Edema: No (No LE edema) Labs: CBC, BMP 11/19/17 15:10 11/19/17 05:30 INR, PTT INR 1.25 (0.83-1.09) H 11/18/17 07:50 Problem List - Problems (1) Rectal bleeding Assessment/Plan: No overt bleeding If H/H stable and no overt bleeding, advance diet in AM No objection to downgrade Code(s): K62.5 - HEMORRHAGE OF ANUS AND RECTUM
--- NOTE | 2017-11-19 18:43 | PN ---
Teaching Attending Note Name of Resident: Indira Mendiola ATTENDING PHYSICIAN STATEMENT I saw and evaluated the patient. I reviewed the resident's note and discussed the case with the resident. I agree with the resident's findings and plan as documented with exceptions below. SUBJECTIVE: Patient seen and examined. no further BM since yesterday AM. no new concerns, tolerating diet well. OBJECTIVE: Vital Signs Period Temp Pulse Resp BP Sys/Cordon Pulse Ox Last 24 Hr 98.6 F-98.8 F 61-79 17-20 118-163/58-84 98-98 Intake & Output 11/16/17 11/17/17 11/18/17 11/19/17 23:59 23:59 23:59 23:59 Intake Total 2160 550 2259 800 Output Total 800 Balance 2160 550 1459 800 Weight 143 lb 8 oz 143 lb General: sitting in chair in no acute distress Abdomen:Soft, NT throughout, ND, positive bowel sounds Active Medications Chlorhexidine Gluconate (Hibiclens For Decolonization -) 1 applic TP HS [facility] Last Admin: 11/18/17 21:29 Dose: 1 applic Metoprolol Succinate (Toprol Xl -) 25 mg PO BID [facility] Last Admin: 11/19/17 09:33 Dose: 25 mg Mupirocin (Bactroban Ointment (For Decolonization) -) 1 applic NS BID KILLIAN Stop: 11/22/17 21:59 Last Admin: 11/19/17 10:00 Dose: 1 applic Pantoprazole Sodium (Protonix -) 40 mg PO DAILY [facility] Last Admin: 11/19/17 09:34 Dose: 40 mg Sucralfate (Carafate Oral Suspension -) 1 gm PO TID KILLIAN Stop: 11/20/17 21:59 Last Admin: 11/19/17 14:11 Dose: 1 gm Laboratory Results - last 24 hr 11/16/17 11/18/17 11/19/17 21:40 20:10 05:30 WBC 7.7 6.7 RBC 2.66 L 2.56 L Hgb 8.1 L 7.7 L Hct 23.9 L 22.8 L MCV 90.1 89.4 MCH 30.5 30.2 MCHC 33.8 33.7 RDW 14.4 14.1 Plt Count 158 144 MPV 9.9 D 9.2 Sodium Potassium Chloride Carbon Dioxide Anion Gap BUN Creatinine Creat Clearance w eGFR Random Glucose Calcium Phosphorus Magnesium Blood Type O POSITIVE Antibody Screen Negative Crossmatch See Detail 11/19/17 11/19/17 05:30 15:10 WBC 7.1 RBC 3.52 L Hgb 10.7 Hct 31.7 L D MCV 90.1 MCH 30.3 MCHC 33.6 RDW 14.5 Plt Count 141 MPV 10.0 Sodium 144 Potassium 4.0 Chloride 114 H Carbon Dioxide 26 Anion Gap 5 L BUN 8 Creatinine 0.7 Creat Clearance w eGFR > 60 Random Glucose 85 Calcium 7.4 L Phosphorus 2.0 L Magnesium 1.9 Blood Type Antibody Screen Crossmatch ASSESSMENT AND PLAN: 82 yof with PMHx of low grade invasive adenoca (tubulovillous polyp) s/p right hemicolectomy 04/2013, last surveillance colonoscopy in 2015 with reported EUS, also with diverticulosis, HTN admitted with hematochezia. -Acute gastrointestinal haemorrhage, likely lower, diverticular bleed vs less likely recurrent malignancy/Bleeding from anastomotic vessel, unlikely to be upper GI bleed -Acute blood loss anemia s/p 2 units PRBC -Low grade invasive adenoca (tubulovillous polyp) s/p right hemicolectomy 04/2013 -HTN -Prolonged QTc Plan: Transfuse another unit PRBC. No gross evidence of bleed or hemodynamic instability. EGD/colonoscopy results noted. GI input noted. repeat h/h noted. Advance diet in 24 hours. d/c protonix drip, change to 40 mg po daily. sucralfate TID per GI. If persistent bleed or drop in H/h, bleeding scan. Resume toprol Cardiology input appreciated DVTPPX with SCDs Dispo agree with transfer out of ICU. dc in 24 hours if h/h stable and no new concerns. Plan discussed with patient in detail, all questions answered. Total critical care time spent in ICU 35 min.
[2017-11-19] MEDS ORDERED: PATIENT'S OWN MEDICATION (NON-FORMULARY) (Losartan/Hydrochlorothiazide [Losartan-Hctz 100- PO SCH (19:30)
[2017-11-19] MEDS: HYDROCHLOROTHIAZIDE 12.5 MG CAPSULE (FP) PO SCH (20:11)
[2017-11-19] MEDS: LOSARTAN POTASSIUM 50 MG TABLET (FP) PO SCH (20:11)
[2017-11-19 21:06] LABS: HEMATOCRIT 29.4 % (32.4-45.2); HEMOGLOBIN 9.8 GM/dL (10.7-15.3); MCH 29.7 pg (25.7-33.7); MCHC 33.4 g/dl (32.0-36.0); MEAN CELL VOLUME 89.1 fl (80-96); MEAN PLT VOLUME 9.8 fl (7.5-11.1); PLATELET COUNT 163 K/MM3 (134-434); RDW 14.7 % (11.6-15.6); WHITE BLOOD COUNT 7.6 K/mm3 (4.0-10.0)
[2017-11-19] MEDS ORDERED: CHLORHEXIDINE GLUCONATE 4% CLEANSER FOR DECOLONIZATION TP SCH (22:00)
[2017-11-19] MEDS ORDERED: MUPIROCIN 2% TOPICAL OINTMENT FOR DECOLONIZATION NS SCH (22:00)
[2017-11-20] MEDS: SUCRALFATE 1 GM/10 ML UNIT DOSE CUPS PO SCH ×2 (06:52→15:33)
[2017-11-20 08:09] LABS: HEMATOCRIT 28.3 % (32.4-45.2); HEMOGLOBIN 9.7 GM/dL (10.7-15.3); MCH 30.3 pg (25.7-33.7); MCHC 34.3 g/dl (32.0-36.0); MEAN CELL VOLUME 88.4 fl (80-96); PLATELET COUNT 148 K/MM3 (134-434); RDW 14.6 % (11.6-15.6); WHITE BLOOD COUNT 5.1 K/mm3 (4.0-10.0)
[2017-11-20 08:27] LABS: ANION GAP 10 MMOL/L (8-16); BLOOD UREA NITROGEN 6 mg/dL (7-18); CALCIUM 8.2 mg/dL (8.5-10.1); CHLORIDE 112 mmol/L (98-107); CO2 24 mmol/L (21-32); CREATININE 0.7 mg/dL (0.55-1.3); GLUCOSE,RANDOM 79 mg/dL (74-106); POTASSIUM 3.8 mmol/L (3.5-5.1); SODIUM 146 mmol/L (136-145)
--- NOTE | 2017-11-20 08:31 | PN ---
Teaching Attending Note Name of Resident: Indira Mendiola ATTENDING PHYSICIAN STATEMENT I saw and evaluated the patient. I reviewed the resident's note and discussed the case with the resident. I agree with the resident's findings and plan as documented with exceptions below. SUBJECTIVE: Patient seen and examined. BM with small blood, improved, no new dizziness, abdominal pain, nausea, vomiting or new concerns. Tolerating diet well. OBJECTIVE: Vital Signs Period Temp Pulse Resp BP Sys/Cordon Pulse Ox Last 24 Hr 97.9 F-98.8 F 58-76 16-20 139-160/72-84 98-98 Intake & Output 11/17/17 11/18/17 11/19/17 11/20/17 23:59 23:59 23:59 23:59 Intake Total 550 2259 1700 Output Total 800 Balance 550 1459 1700 Weight 143 lb 8 oz 143 lb General: sitting in bed in no acute distress Abdomen: soft, NT, ND, positive bowel sounds Extremities: no edema Active Medications Amlodipine Besylate (Norvasc -) 10 mg PO DAILY [facility] Hydrochlorothiazide (Hctz -) 12.5 mg PO DAILY [facility] Last Admin: 11/19/17 20:11 Dose: 12.5 mg Losartan Potassium (Cozaar -) 100 mg PO DAILY [facility] Last Admin: 11/19/17 20:11 Dose: 100 mg Metoprolol Succinate (Toprol Xl -) 50 mg PO DAILY [facility] Metoprolol Succinate (Toprol Xl -) 50 mg PO DAILY [facility] Last Admin: 11/19/17 20:10 Dose: 50 mg Pantoprazole Sodium (Protonix -) 40 mg PO DAILY [facility] Last Admin: 11/19/17 09:34 Dose: 40 mg Sucralfate (Carafate Oral Suspension -) 1 gm PO TID [facility] Stop: 11/20/17 21:59 Last Admin: 11/20/17 06:52 Dose: 1 gm Laboratory Results - last 24 hr 11/16/17 11/19/17 11/19/17 21:40 15:10 20:00 WBC 7.1 7.6 RBC 3.52 L 3.30 L Hgb 10.7 9.8 L Hct 31.7 L D 29.4 L MCV 90.1 89.1 MCH 30.3 29.7 MCHC 33.6 33.4 RDW 14.5 14.7 Plt Count 141 163 MPV 10.0 9.8 Sodium Potassium Chloride Carbon Dioxide Anion Gap BUN Creatinine Creat Clearance w eGFR Random Glucose Calcium Blood Type O POSITIVE Antibody Screen Negative Crossmatch See Detail 11/20/17 11/20/17 07:29 07:29 WBC 5.1 RBC 3.20 L Hgb 9.7 L Hct 28.3 L MCV 88.4 MCH 30.3 MCHC 34.3 RDW 14.6 Plt Count 148 MPV 9.0 Sodium 146 H Potassium 3.8 Chloride 112 H Carbon Dioxide 24 Anion Gap 10 BUN 6 L Creatinine 0.7 Creat Clearance w eGFR > 60 Random Glucose 79 Calcium 8.2 L Blood Type Antibody Screen Crossmatch ASSESSMENT AND PLAN: 82 yof with PMHx of low grade invasive adenoca (tubulovillous polyp) s/p right hemicolectomy 04/2013, last surveillance colonoscopy in 2015 with reported EUS, also with diverticulosis, HTN admitted with hematochezia. -Acute gastrointestinal haemorrhage, likely lower, diverticular bleed vs less likely recurrent malignancy/Bleeding from anastomotic vessel, unlikely to be upper GI bleed -Acute blood loss anemia s/p 3 units PRBC -Low grade invasive adenoca (tubulovillous polyp) s/p right hemicolectomy 04/2013 -HTN -Prolonged QTc Plan: h/h stable No gross evidence of bleed or hemodynamic instability. Scant blood on BM, suspect clearing from recent bleed. EGD/colonoscopy results noted. GI input noted. Tolerating diet well. PPI daily. s/p 3 days of sucralfate. Continue toprol Cardiology input appreciated DVTPPX with SCDs Dispo d/c today with outpatient CBC monitoring and GI follow up. High fiber diet and prn laxatives to avoid constipation. Plan discussed with patient in detail, all questions answered.
[2017-11-20] MEDS: HYDROCHLOROTHIAZIDE 12.5 MG CAPSULE (FP) PO SCH (09:03)
[2017-11-20] MEDS: LOSARTAN POTASSIUM 50 MG TABLET (FP) PO SCH (09:03)
[2017-11-20] MEDS: PANTOPRAZOLE 40 MG TABLET (FP) PO SCH (09:08)
[2017-11-20] MEDS ORDERED: amLODIPine BESYLATE 10 MG TABLET (FP) PO SCH (10:00)
[2017-11-20] MEDS ORDERED: metoPROLOL SUCCINATE 25 MG TAB.SR.24H (FP) PO SCH (10:00)
--- NOTE | 2017-11-20 10:45 | PN ---
Progress Note, Physician Chief Complaint: lgib History of Present Illness: 82 yo female PMH, Diverticulosis, colon cancer, melanoma of her left foot, TIA ( April) and HTN who presents with reports of BRBPR that has been present since evening. She reports that she underwent a right hemicolectomy 4 years ago for colon cancer and underwent a colonoscopy in April of 2015 revealed mild diverticulosis of the distal colon, moderate diverticulosis of the proximal colon and a patent ileocolonic surgical anatamosisin the proximal half of the colon. Patient was admitted yesterday morning for rectal bleeding, she has been transfused 3 units RBC, and has remained hemodynamically stable throughout. No complaints this morning. - Current Medication List Current Medications: Active Medications Amlodipine Besylate (Norvasc -) 10 mg PO DAILY [facility] Last Admin: 11/20/17 09:06 Dose: 10 mg Hydrochlorothiazide (Hctz -) 12.5 mg PO DAILY [facility] Last Admin: 11/20/17 09:03 Dose: 12.5 mg Losartan Potassium (Cozaar -) 100 mg PO DAILY [facility] Last Admin: 11/20/17 09:03 Dose: 100 mg Metoprolol Succinate (Toprol Xl -) 50 mg PO DAILY [facility] Last Admin: 11/20/17 09:07 Dose: 50 mg Pantoprazole Sodium (Protonix -) 40 mg PO DAILY [facility] Last Admin: 11/20/17 09:08 Dose: 40 mg Sucralfate (Carafate Oral Suspension -) 1 gm PO TID [facility] Stop: 11/20/17 21:59 Last Admin: 11/20/17 06:52 Dose: 1 gm - Objective Vital Signs: Vital Signs Temperature 97.9 F 11/20/17 05:00 Pulse Rate 61 11/20/17 05:00 Respiratory Rate 16 11/20/17 05:00 Blood Pressure 148/76 11/20/17 05:00 O2 Sat by Pulse Oximetry (%) 98 11/19/17 20:53 Constitutional: Yes: Well Nourished, No Distress, Calm Eyes: Yes: Conjunctiva Clear, EOM Intact HENT: Yes: Atraumatic, Normocephalic Neck: Yes: Supple, Trachea Midline Respiratory: Yes: Regular, CTA Bilaterally Gastrointestinal: Yes: Normal Bowel Sounds, Soft. No: Tenderness ...Rectal Exam: Yes: Deferred Genitourinary: No: CVA Tenderness - Left, CVA Tenderness - Right Musculoskeletal: No: Muscle Pain, Muscle Weakness Extremities: No: Cool, Cyanosis Edema: No Peripheral Pulses WNL: Yes Peripheral Pulses: Left Radial: 2+, Right Radial: 2+, Left Doralis Pedis: 2+, Right Dorsalis Pedis: 2+ Integumentary: No: Jaundice, Rash Neurological: Yes: Alert, Oriented Psychiatric: Yes: Alert, Oriented Labs: CBC, BMP 11/20/17 07:29 11/20/17 07:29 INR, PTT INR 1.25 (0.83-1.09) H 11/18/17 07:50 Problem List - Problems (1) Rectal bleeding Assessment/Plan: 82 yo female MMP with LGIB secondary to diverticulosis s/p partial colectomy [address] Ann, transfused 3 units RBCs this admission. No need for emergency surgical intervention. Diet as tolerted IVF hydration Transfuse as needed GI evaluation for endoscopy consider IR for embolization if persistent Will follow Code(s): K62.5 - HEMORRHAGE OF ANUS AND RECTUM (2) Anemia Code(s): D64.9 - ANEMIA, UNSPECIFIED Qualifiers: Anemia type: iron deficiency Iron deficiency anemia type: chronic blood loss Qualified Code(s): D50.0 - Iron deficiency anemia secondary to blood loss (chronic) (3) TIA (transient ischemic attack) Code(s): G45.9 - TRANSIENT CEREBRAL ISCHEMIC ATTACK, UNSPECIFIED (4) HTN (hypertension) Code(s): I10 - ESSENTIAL (PRIMARY) HYPERTENSION Qualifiers: Hypertension type: essential hypertension Qualified Code(s): I10 - Essential (primary) hypertension
--- NOTE | 2017-11-20 12:18 | PN ---
Progress Note, Physician History of Present Illness: PCP: Jimmy Jeter No further hematochezia, denies abd pain, chest pain or dyspnea, Hgb stable post transfusion. Tolerating regular diet. - Current Medication List Current Medications: Active Medications Amlodipine Besylate (Norvasc -) 10 mg PO DAILY [facility] Last Admin: 11/20/17 09:06 Dose: 10 mg Hydrochlorothiazide (Hctz -) 12.5 mg PO DAILY [facility] Last Admin: 11/20/17 09:03 Dose: 12.5 mg Losartan Potassium (Cozaar -) 100 mg PO DAILY [facility] Last Admin: 11/20/17 09:03 Dose: 100 mg Metoprolol Succinate (Toprol Xl -) 50 mg PO DAILY [facility] Last Admin: 11/20/17 09:07 Dose: 50 mg Pantoprazole Sodium (Protonix -) 40 mg PO DAILY [facility] Last Admin: 11/20/17 09:08 Dose: 40 mg Sucralfate (Carafate Oral Suspension -) 1 gm PO TID [facility] Stop: 11/20/17 21:59 Last Admin: 11/20/17 06:52 Dose: 1 gm - Objective Vital Signs: Vital Signs Temperature 98.6 F 11/20/17 09:00 Pulse Rate 68 11/20/17 09:00 Respiratory Rate 18 11/20/17 09:00 Blood Pressure 158/80 11/20/17 09:00 O2 Sat by Pulse Oximetry (%) 97 11/20/17 09:00 Constitutional: Yes: No Distress, Calm, Thin Neck: Yes: Supple Cardiovascular: Yes: Regular Rate and Rhythm, Murmur (2/6 SM) Respiratory: Yes: Regular, CTA Bilaterally Gastrointestinal: Yes: Normal Bowel Sounds, Soft Edema: No Labs: CBC, BMP 11/20/17 07:29 11/20/17 07:29 INR, PTT INR 1.25 (0.83-1.09) H 11/18/17 07:50 Problem List - Problems (1) TIA (transient ischemic attack) Code(s): G45.9 - TRANSIENT CEREBRAL ISCHEMIC ATTACK, UNSPECIFIED (2) Rectal bleeding Code(s): K62.5 - HEMORRHAGE OF ANUS AND RECTUM (3) HTN (hypertension) Code(s): I10 - ESSENTIAL (PRIMARY) HYPERTENSION Qualifiers: Hypertension type: essential hypertension Qualified Code(s): I10 - Essential (primary) hypertension (4) Anemia Code(s): D64.9 - ANEMIA, UNSPECIFIED Qualifiers: Anemia type: iron deficiency Iron deficiency anemia type: chronic blood loss Qualified Code(s): D50.0 - Iron deficiency anemia secondary to blood loss (chronic) (5) Right bundle branch block Code(s): I45.10 - UNSPECIFIED RIGHT BUNDLE-BRANCH BLOCK Assessment/Plan 1. Painless rectal bleeding, probably diverticular bleed is suspect 2. HTN 3. Abnormal EKG - RBBB 4. 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 History TIA/transient ischemic attack 6. Anemia related to the above bleed post transfusion PLAN: 1. Monitor Hg and transfuse to maintain equal or > 8.0 2. Continue Toprol XL 25 bid as hemodynamics tolerate and resume ASA 81 qd once hemostasis achieved 3. GI protection 4. Bleeding scan if recurs, d/c planning
[2017-11-20 16:49] LABS: HEMATOCRIT 32.2 % (32.4-45.2); HEMOGLOBIN 10.9 GM/dL (10.7-15.3); MCH 30.7 pg (25.7-33.7); MEAN CELL VOLUME 90.2 fl (80-96); MEAN PLT VOLUME 9.3 fl (7.5-11.1); PLATELET COUNT 188 K/MM3 (134-434); RBC 3.56 M/mm3 (3.60-5.2); RDW 14.7 % (11.6-15.6); WHITE BLOOD COUNT 5.8 K/mm3 (4.0-10.0)
[2017-11-20 19:13] VITALS: BP 128/85; PULSE 82; TEMP 99.3
--- NOTE | 2017-11-20 19:58 | DS ---
Physical Exam: SUBJECTIVE: Patient seen and examined at bedside this morning. Patient has no new complaints and reports non-bloody bowel movements. No acute events overnight. Patient has no new complaints. OBJECTIVE: Vital Signs Period Temp Pulse Resp BP Sys/Cordon Pulse Ox Last 24 Hr 97.9 F-99.8 F 58-82 16-18 128-160/72-87 97-98 PHYSICAL EXAM GENERAL: The patient is awake, alert, and fully oriented, in no acute distress. HEAD: Normal with no signs of trauma. EYES: PERRLA, EOMI, sclera anicteric, conjunctiva clear. ENT: Ears normal, nares patent, oropharynx clear without exudates, moist mucous membranes. NECK: Trachea midline, full range of motion, supple. LUNGS: Breath sounds equal, clear to auscultation bilaterally, no accessory muscle use. HEART: Regular rate and rhythm, S1, S2 without murmur, rub or gallop. ABDOMEN: Soft, nontender, nondistended, normoactive bowel sounds. EXTREMITIES: 2+ pulses, warm, well-perfused, no edema. NEUROLOGICAL: Cranial nerves II through XII grossly intact. Normal speech, gait not observed. PSYCH: Normal mood, normal affect. SKIN: Warm, dry, normal turgor, no rashes or lesions noted LABS Laboratory Results - last 24 hr 11/16/17 11/19/17 11/20/17 21:40 20:00 07:29 WBC 7.6 5.1 RBC 3.30 L 3.20 L Hgb 9.8 L 9.7 L Hct 29.4 L 28.3 L MCV 89.1 88.4 MCH 29.7 30.3 MCHC 33.4 34.3 RDW 14.7 14.6 Plt Count 163 148 MPV 9.8 9.0 Sodium Potassium Chloride Carbon Dioxide Anion Gap BUN Creatinine Creat Clearance w eGFR Random Glucose Calcium Blood Type O POSITIVE Antibody Screen Negative Crossmatch See Detail 11/20/17 11/20/17 07:29 16:18 WBC 5.8 RBC 3.56 L Hgb 10.9 Hct 32.2 L MCV 90.2 MCH 30.7 MCHC 34.0 RDW 14.7 Plt Count 188 D MPV 9.3 Sodium 146 H Potassium 3.8 Chloride 112 H Carbon Dioxide 24 Anion Gap 10 BUN 6 L Creatinine 0.7 Creat Clearance w eGFR > 60 Random Glucose 79 Calcium 8.2 L Blood Type Antibody Screen Crossmatch HOSPITAL COURSE: Date of Admission:11/15/17 Date of Discharge: 11/20/17 Patient is an 82 year old female with past medical history of Colon cancer s/p right hemicolectomy (2013), Diverticulosis, Internal hemorrhoids, CVA (April 2017), and melanoma of the left foot, presented with bright red blood per rectum. GI, surgery and cardiology consulted. Patient underwent EGD and colonoscopy and was noted to have gastritis and diverticulosis. She was started on Protonix and Sucralfate. Patient was also noted to be anemic and received a total of 3 units of pRBC to maintain Hgb >8. Patient was discharged to follow- up with PCP for a repeat CBC and with GI (Dr. Geller). Minutes to complete discharge: 40 Discharge Summary Reason For Visit: RECTAL HEMORRHAGE Current Active Problems Anemia (Acute) Preprocedural cardiovascular examination (Acute) Rectal bleeding (Acute) Right bundle branch block (Acute) TIA (transient ischemic attack) (Acute) Condition: Stable - Instructions Diet, Activity, Other Instructions: You were admitted because you had bleeding from the rectum. You had EGD and colonoscopy done, where a flexible scope was inserted through your mouth and rectum. The results showed you had Gastritis, or inflammation on your stomach wall and Diverticulosis which are small bulging sacs pushing outward from the colon wall. Please continue new medication protonix 40 mg daily for 2 weeks and then as instructed by your doctor. Eat foods that are high in fiber, including whole wheat, fruits and vegetables. Avoid taking Aspirin and NSAIDs. Please follow-up with Dr. Geller in 1 week. (information provided) You also had anemia. This may have been likely due to the bleeding you had. You received 3 units of blood. YOu will need follow up blood work (CBC) in 1 week with your doctor. Continue all your home medications as prescribed. Call 911 or go to the ED for any worsening fever, chills, shortness of breath, bleeding, dizziness or any new concerns noted. Referrals: Miguel Geller DO [Staff Physician] - Angel Rodriguez MD [Staff Physician] - Disposition: HOME - Home Medications Comprehensive Discharge Medication List: Ambulatory Orders Metoprolol Succinate 50 mg PO DAILY 03/14/16 Amlodipine Besylate 10 mg PO DAILY 11/19/17 Folic Acid 1 mg PO DAILY 11/19/17 Losartan/Hydrochlorothiazide [Losartan-Hctz 100-12.5 mg Tab] 1 each PO DAILY Pantoprazole Sodium [Protonix -] 40 mg PO DAILY #14 tablet.ec 11/20/17 This patient is new to me today: Yes Date on this admission: 11/23/17 Emergency Visit: Yes ED Registration Date: 11/15/17 Care time: The patient presented to the Emergency Department on the above date and was hospitalized for further evaluation of their emergent condition. Critical Care patient: No - Discharge Referral Referred to [facility] No
== END 2017-11-20 20:14 | disposition home or self-care (01) | DRG 378 ==
LOC: JER 14:35 → JERBED 15:51 → J6S 19:00 → J4W 11-16 18:49 → JICU 11-17 17:09 → J5S 11-19 21:26
PROVIDERS: ADMIT Internal Medicine; ATTEND Hospitalist
PROC: 0DB68ZX Excision of Stomach, Via Natural or Artificial Opening Endoscopic, Diagnostic (ICD-10-PCS; 2017-11-17)
PROC: 30233N1 Transfusion of Nonautologous Red Blood Cells into Peripheral Vein, Percutaneous Approach (ICD-10-PCS; 2017-11-17)
PROC: 0DJD8ZZ Inspection of Lower Intestinal Tract, Via Natural or Artificial Opening Endoscopic (ICD-10-PCS; principal; 2017-11-17 15:00)
DX: K62.5 Hemorrhage of anus and rectum (principal); E87.0 Hyperosmolality and hypernatremia; D62 Acute posthemorrhagic anemia; I10 Essential (primary) hypertension; E78.5 Hyperlipidemia, unspecified; K57.90 Diverticulosis of intestine, part unspecified, without perforation or abscess without bleeding; K64.8 Other hemorrhoids; I45.81 Long QT syndrome; E86.0 Dehydration; D50.0 Iron deficiency anemia secondary to blood loss (chronic); R94.31 Abnormal electrocardiogram [ECG] [EKG]; I45.10 Unspecified right bundle-branch block; K29.70 Gastritis, unspecified, without bleeding; K63.5 Polyp of colon; Z85.820 Personal history of malignant melanoma of skin; Z85.038 Personal history of other malignant neoplasm of large intestine; Z86.73 Personal history of transient ischemic attack (TIA), and cerebral infarction without residual deficits
CPT/HCPCS: 36415; 36430; 80048; 80053; 82272; 83735; 84100; 85025; 85027; 85610; 85730; 86850; 86900; 86901; 86922; 88305-TC; 93005; 93010; 99284-25; J0131; P9038; P9058

== ENCOUNTER 2020-05-17 14:17 | Emergency (ER) | payer BC, OTHER ==
[2020-05-17 14:35] VITALS: BMI 29.2
[2020-05-17 16:04] LABS: BASO % 0.5 % (0-2.0); HEMATOCRIT 32.7 % (32.4-45.2); HEMOGLOBIN 10.9 GM/dL (10.7-15.3); LYMPH % 31.6 % (8-40); MCH 30.7 pg (25.7-33.7); MCHC 33.3 g/dl (32.0-36.0); MEAN CELL VOLUME 92.3 fl (80-96); MEAN PLT VOLUME 8.6 fl (7.5-11.1); MONO % 10.8 % (3.8-10.2); NEUT % 54.1 % (42.8-82.8); PLATELET COUNT 254 K/MM3 (134-434); RBC 3.54 M/mm3 (3.60-5.2); RDW 13.6 % (11.6-15.6); RETICULOCYTES 1.08 % (0.5-1.5)
[2020-05-17 16:23] LABS: CHLORIDE 107 mmol/L (98-107); POTASSIUM 3.5 mmol/L (3.5-5.1); SODIUM 140 mmol/L (136-145)
[2020-05-17 16:24] LABS: MAGNESIUM 2.1 mg/dL (1.8-2.4)
[2020-05-17 16:25] LABS: CALCIUM 9.1 mg/dL (8.5-10.1)
[2020-05-17 16:27] LABS: ALBUMIN 3.5 g/dl (3.4-5.0); ANION GAP 3 MMOL/L (8-16); BLOOD UREA NITROGEN 21.2 mg/dL (7-18); CO2 30 mmol/L (21-32); GLUCOSE,RANDOM 82 mg/dL (74-106)
[2020-05-17 16:28] LABS: PHOSPHOROUS 3.3 mg/dL (2.5-4.9)
[2020-05-17 16:29] LABS: CREATININE 1.2 mg/dL (0.55-1.3); SGOT/AST 17 U/L (15-37); SGPT/ALT 13 U/L (13-61)
[2020-05-17 16:31] LABS: BILIRUBIN,TOTAL 0.4 mg/dL (0.2-1); TOT PROT 6.7 g/dl (6.4-8.2)
[2020-05-17 16:33] LABS: ALK PHOS 76 U/L (45-117)
[2020-05-17 17:08] VITALS: TEMP 98
[2020-05-17 20:00] LABS: PH,URINE 6.5 (5.0-8.0); URINE APPEARANCE Clear; URINE BILIRUBIN Negative (NEGATIVE); URINE COLOR Yellow; URINE GLUCOSE (UA) Negative (NEGATIVE); URINE KETONE Negative (NEGATIVE); URINE LEUK ESTERASE 3+ (NEGATIVE); URINE NITRITE Negative (NEGATIVE); URINE PROTEIN 1+ (NEGATIVE)
[2020-05-17 21:49] VITALS: BP 160/86; PULSE 66
== END 2020-05-17 21:51 | disposition home or self-care (01) ==
LOC: JER 14:17
DX: K62.5 Hemorrhage of anus and rectum (principal)
CPT/HCPCS: 36415; 74177-TC; 80053; 81003; 82272; 82550; 82553; 83605; 83690; 83735; 84100; 84484; 85025; 85045; 86850; 86900; 86901; 87077; 87086; 93005; 93010; 99285-25; Q9967

== ENCOUNTER 2020-07-20 04:34 | Day surgery (SDC) | payer BC, OTHER ==
[2020-07-18 15:48] VITALS: BMI 27.1
[2020-07-20 12:33] VITALS: TEMP 98
[2020-07-20 12:50] VITALS: PULSE 61
[2020-07-20 13:09] VITALS: BP 150/68
== END 2020-07-20 13:32 | disposition home or self-care (01) ==
LOC: JASU-ENDO 04:34
PROVIDERS: ATTEND Internal Medicine Gastroenterology
PROC: 0DBL8ZX Excision of Transverse Colon, Via Natural or Artificial Opening Endoscopic, Diagnostic (ICD-10-PCS; 2020-07-20)
PROC: 0DBN8ZX Excision of Sigmoid Colon, Via Natural or Artificial Opening Endoscopic, Diagnostic (ICD-10-PCS; principal; 2020-07-20 11:00)
DX: Z85.038 Personal history of other malignant neoplasm of large intestine (principal); K62.5 Hemorrhage of anus and rectum; D12.5 Benign neoplasm of sigmoid colon; K63.5 Polyp of colon; K57.30 Diverticulosis of large intestine without perforation or abscess without bleeding; K64.8 Other hemorrhoids; Z98.0 Intestinal bypass and anastomosis status
CPT/HCPCS: 88305-TC

== ENCOUNTER 2022-03-22 14:28 | Inpatient (IN) | payer BC, OTHER ==
[2022-03-22 14:34] VITALS: BMI 24.5
[2022-03-22] MEDS ORDERED: morphine CARPU-JECT 4 MG/1 ML DISP.SYRIN IVPUSH ONE (15:05)
[2022-03-22] MEDS ORDERED: ONDANSETRON 4 MG/2 ML VIAL IVPUSH ONE (15:12)
[2022-03-22] MEDS ORDERED: morphine SULFATE 4 MG/ML VIAL ONE (15:12)
[2022-03-22] MEDS ORDERED: ONDANSETRON 4 MG/2 ML VIAL ONE (15:28)
[2022-03-22 16:01] LABS: BASO % 0.5 % (0-2.0); EOS % 0.3 % (0-4.5); HEMATOCRIT 39.7 % (32.4-45.2); HEMOGLOBIN 12.8 GM/dL (10.7-15.3); LYMPH % 7.9 % (8-40); MCH 28.6 pg (25.7-33.7); MCHC 32.3 g/dl (32.0-36.0); MEAN CELL VOLUME 88.5 fl (80-96); MEAN PLT VOLUME 9.2 fl (7.5-11.1); MONO % 4.7 % (3.8-10.2); NEUT % 86.6 % (42.8-82.8); PLATELET COUNT 253 10^3/uL (134-434); RBC 4.49 M/mm3 (3.60-5.2); RDW 15.5 % (11.6-15.6); WHITE BLOOD COUNT 7.5 K/mm3 (4.0-10.0)
[2022-03-22 16:11] LABS: INR 1.12 (0.83-1.09); PROTHROMBIN TIME (PATIENT) 12.9 SEC (9.7-13.0)
[2022-03-22 16:14] LABS: ACTIVATED PTT 31.5 SECONDS (25.2-36.5)
[2022-03-22 16:16] LABS: CALCIUM 9.8 mg/dL (8.5-10.1)
[2022-03-22 16:17] LABS: ALBUMIN 3.6 g/dl (3.4-5.0); BLOOD UREA NITROGEN 21.9 mg/dL (7-18)
[2022-03-22 16:19] LABS: CREATININE 1.5 mg/dL (0.55-1.3)
[2022-03-22 16:22] LABS: BILIRUBIN,TOTAL 0.6 mg/dL (0.2-1); TOT PROT 7.3 g/dl (6.4-8.2)
[2022-03-22] MEDS ORDERED: SODIUM CHLORIDE 0.9% 500 ML INFUS.BAG IV ONE (16:27)
[2022-03-22] MEDS ORDERED: KETOROLAC TROMETHAMINE 15 MG/ML VIAL IVPUSH ONE (16:27)
[2022-03-22] MEDS ORDERED: TAMSULOSIN HCL 0.4 MG CAP PO ONE (16:27)
[2022-03-22] MEDS ORDERED: KETOROLAC TROMETHAMINE 15 MG/ML VIAL ONE (16:36)
[2022-03-22] MEDS ORDERED: TAMSULOSIN HCL 0.4 MG CAP ONE (16:36)
[2022-03-22 17:15] LABS: EPI CELLS 23 /uL (0-25.1); HYALINE CASTS 1 /uL (0-3.1); PH,URINE 6.5 (5.0-8.0); URINE APPEARANCE CLOUDY; URINE BACTERIA 39 /uL (0-1359); URINE BILIRUBIN NEGATIVE (NEGATIVE); URINE COLOR YELLOW; URINE GLUCOSE (UA) NEGATIVE (NEGATIVE); URINE KETONE TRACE (NEGATIVE); URINE LEUK ESTERASE 1+ (NEGATIVE); URINE NITRITE NEGATIVE (NEGATIVE); URINE PROTEIN TRACE (NEGATIVE); URINE RBC 123 /uL (0-23.9); URINE UROBILINOGEN 0.2 mg/dL (0.2-1.0); URINE WBC 19 /uL (0-25.8)
[2022-03-22] MEDS ORDERED: CEFTRIAXONE 1,000 MG in DEXTROSE 5%-WATER - 50 ML IVPB ONE (18:05)
[2022-03-22] MEDS ORDERED: CEFTRIAXONE 1 GM/50 ML BAG ONE (18:13)
[2022-03-22] MEDS ORDERED: SODIUM CHLORIDE 1,000 ML IV SCH (19:00)
[2022-03-22] MEDS ORDERED: ACETAMINOPHEN 1000 MG/100 ML BAG IVPB PRN (20:55)
[2022-03-22] MEDS ORDERED: ATORVASTATIN CA 40 MG TABLET (FP) PO SCH (22:00)
[2022-03-23] MEDS: hydrALAZINE HCL 10 MG TABLET PO SCH ×3 (00:02→21:49)
[2022-03-23] MEDS ORDERED: TAMSULOSIN HCL 0.4 MG CAP PO SCH (08:30)
[2022-03-23] MEDS ORDERED: PROPOFOL 20 ML ONE (09:48)
[2022-03-23] MEDS ORDERED: MIDAZOLAM HCL 2 MG/2 ML SINGLE DOSE VIAL ONE (09:48)
[2022-03-23] MEDS ORDERED: amLODIPine BESYLATE 10 MG TABLET (FP) PO SCH (10:00)
[2022-03-23] MEDS ORDERED: FOLIC ACID 1 MG TABLET (FP) PO SCH (10:00)
[2022-03-23] MEDS ORDERED: LOSARTAN POTASSIUM 50 MG TABLET PO SCH (10:00)
[2022-03-23 10:12] LABS: BASO % 0.3 % (0-2.0); EOS % 2.4 % (0-4.5); HEMATOCRIT 35.2 % (32.4-45.2); HEMOGLOBIN 11.3 GM/dL (10.7-15.3); LYMPH % 18.5 % (8-40); MCH 28.2 pg (25.7-33.7); MEAN CELL VOLUME 88.2 fl (80-96); MEAN PLT VOLUME 8.9 fl (7.5-11.1); MONO % 9.2 % (3.8-10.2); NEUT % 69.6 % (42.8-82.8); PLATELET COUNT 211 10^3/uL (134-434); RBC 3.99 M/mm3 (3.60-5.2); RDW 15.6 % (11.6-15.6); WHITE BLOOD COUNT 6.2 K/mm3 (4.0-10.0)
[2022-03-23 10:23] LABS: INR 1.11 (0.83-1.09); PROTHROMBIN TIME (PATIENT) 12.8 SEC (9.7-13.0)
[2022-03-23 10:26] LABS: ACTIVATED PTT 33.8 SECONDS (25.2-36.5)
[2022-03-23 10:44] LABS: ALBUMIN 2.9 g/dl (3.4-5.0); CALCIUM 8.7 mg/dL (8.5-10.1)
[2022-03-23 10:45] LABS: BLOOD UREA NITROGEN 23.1 mg/dL (7-18); MAGNESIUM 1.8 mg/dL (1.8-2.4)
[2022-03-23 10:48] LABS: CREATININE 1.7 mg/dL (0.55-1.3); PHOSPHOROUS 3.1 mg/dL (2.5-4.9)
[2022-03-23 10:49] LABS: BILIRUBIN,TOTAL 0.5 mg/dL (0.2-1)
[2022-03-23] MEDS ORDERED: ceFAZolin SODIUM 1 GM VIAL ONE (11:29)
[2022-03-23] MEDS ORDERED: ceFAZolin SODIUM 1 GM VIAL IVPB ONE (11:32)
[2022-03-23] MEDS ORDERED: ACETAMINOPHEN 1000 MG/100 ML BAG IVPB PRN (12:13)
[2022-03-23] MEDS ORDERED: PROMETHAZINE HCL 25 MG/1 ML VIAL IVPUSH PRN (12:16)
[2022-03-23] MEDS ORDERED: ONDANSETRON 4 MG/2 ML VIAL IVPUSH PRN (12:16)
[2022-03-23] MEDS ORDERED: LACTATED RINGERS SOLUTION 1,000 ML IV SCH (12:30)
[2022-03-23] MEDS: LACTATED RINGERS SOLUTION 1,000 ML/1,000 ML INFUS.BAG IV SCH (19:03)
[2022-03-23] MEDS: ATORVASTATIN CA 40 MG TABLET (FP) PO SCH (21:49)
[2022-03-23] MEDS ORDERED: ATORVASTATIN CA 40 MG TABLET (FP) PO SCH (22:00)
[2022-03-24] MEDS: LACTATED RINGERS SOLUTION 1,000 ML/1,000 ML INFUS.BAG IV SCH (01:29)
[2022-03-24] MEDS: FOLIC ACID 1 MG TABLET (FP) PO SCH (09:32)
[2022-03-24] MEDS: amLODIPine BESYLATE 10 MG TABLET (FP) PO SCH (09:32)
[2022-03-24] MEDS: LOSARTAN POTASSIUM 50 MG TABLET PO SCH (09:32)
[2022-03-24] MEDS: hydrALAZINE HCL 10 MG TABLET PO SCH ×2 (09:32→22:51)
[2022-03-24] MEDS: TAMSULOSIN HCL 0.4 MG CAP PO SCH (09:32)
[2022-03-24 10:51] LABS: BLOOD UREA NITROGEN 17.3 mg/dL (7-18); CALCIUM 9.2 mg/dL (8.5-10.1)
[2022-03-24 10:52] LABS: MAGNESIUM 1.6 mg/dL (1.8-2.4)
[2022-03-24 10:55] LABS: CREATININE 0.8 mg/dL (0.55-1.3)
[2022-03-24 10:56] LABS: BILIRUBIN,TOTAL 0.8 mg/dL (0.2-1)
[2022-03-24] MEDS ORDERED: MAGNESIUM SULF 50% (8.12 MEQ/2 ML-1 GM VIAL) IVPB ONE ×2 (16:50)
[2022-03-24] MEDS ORDERED: ENOXAPARIN NA (PORCINE) 40 MG/0.4 ML DISP.SYRIN SQ SCH (17:15)
[2022-03-24] MEDS: ATORVASTATIN CA 40 MG TABLET (FP) PO SCH (22:51)
[2022-03-25 09:55] LABS: HEMATOCRIT 32.5 % (32.4-45.2); HEMOGLOBIN 11.1 GM/dL (10.7-15.3); MCH 29.6 pg (25.7-33.7); MCHC 34.1 g/dl (32.0-36.0); MEAN CELL VOLUME 86.8 fl (80-96); MEAN PLT VOLUME 8.7 fl (7.5-11.1); PLATELET COUNT 209 10^3/uL (134-434); RBC 3.75 M/mm3 (3.60-5.2); RDW 15.3 % (11.6-15.6); WHITE BLOOD COUNT 5.1 K/mm3 (4.0-10.0)
[2022-03-25 10:23] LABS: ALBUMIN 2.8 g/dl (3.4-5.0); BLOOD UREA NITROGEN 18.1 mg/dL (7-18); CALCIUM 9.1 mg/dL (8.5-10.1)
[2022-03-25 10:24] LABS: MAGNESIUM 2.1 mg/dL (1.8-2.4)
[2022-03-25 10:26] LABS: CREATININE 0.9 mg/dL (0.55-1.3)
[2022-03-25 10:28] LABS: BILIRUBIN,TOTAL 0.6 mg/dL (0.2-1); TOT PROT 5.6 g/dl (6.4-8.2)
[2022-03-25] MEDS: FOLIC ACID 1 MG TABLET (FP) PO SCH (11:34)
[2022-03-25] MEDS: LOSARTAN POTASSIUM 50 MG TABLET PO SCH (11:34)
[2022-03-25] MEDS: TAMSULOSIN HCL 0.4 MG CAP PO SCH (11:34)
[2022-03-25] MEDS: hydrALAZINE HCL 10 MG TABLET PO SCH ×2 (11:34→21:37)
[2022-03-25] MEDS: amLODIPine BESYLATE 10 MG TABLET (FP) PO SCH (11:34)
[2022-03-25] MEDS: KCL 10 MEQ IVPB 10 MEQ/100 ML INFUS.BAG IVPB SCH ×2 (18:52→20:25)
[2022-03-25] MEDS: ATORVASTATIN CA 40 MG TABLET (FP) PO SCH (21:38)
[2022-03-26] MEDS: TAMSULOSIN HCL 0.4 MG CAP PO SCH (09:14)
[2022-03-26] MEDS: FOLIC ACID 1 MG TABLET (FP) PO SCH (09:14)
[2022-03-26] MEDS: hydrALAZINE HCL 10 MG TABLET PO SCH (09:14)
[2022-03-26] MEDS: amLODIPine BESYLATE 10 MG TABLET (FP) PO SCH (09:15)
[2022-03-26] MEDS: LOSARTAN POTASSIUM 50 MG TABLET PO SCH (09:15)
[2022-03-26 09:17] VITALS: RESP 20
[2022-03-26 10:41] LABS: HEMATOCRIT 36.3 % (32.4-45.2); HEMOGLOBIN 11.8 GM/dL (10.7-15.3); MCH 28.6 pg (25.7-33.7); MCHC 32.6 g/dl (32.0-36.0); MEAN CELL VOLUME 87.7 fl (80-96); PLATELET COUNT 263 10^3/uL (134-434); RBC 4.14 M/mm3 (3.60-5.2); RDW 15.7 % (11.6-15.6); WHITE BLOOD COUNT 5.5 K/mm3 (4.0-10.0)
[2022-03-26 11:01] LABS: CALCIUM 9.5 mg/dL (8.5-10.1)
[2022-03-26 11:02] LABS: BLOOD UREA NITROGEN 18.6 mg/dL (7-18)
[2022-03-26] MEDS ORDERED: LINEZOLID 600 MG TABLET (RESTRICTED TO ID) PO SCH (14:00)
[2022-03-26 17:42] VITALS: BP 135/69; PULSE 75; TEMP 98.4
== END 2022-03-26 19:45 | disposition home or self-care (01) | DRG 660 ==
LOC: JER 14:28 → JERBED 18:10 → J5S 21:18 → J8W 03-24 11:09
PROVIDERS: ADMIT Internal Medicine; ATTEND Internal Medicine
PROC: BT1FZZZ Fluoroscopy of Left Kidney, Ureter and Bladder (ICD-10-PCS; 2022-03-23)
PROC: 0T778DZ Dilation of Left Ureter with Intraluminal Device, Via Natural or Artificial Opening Endoscopic (ICD-10-PCS; principal; 2022-03-23 10:30)
DX: N13.6 Pyonephrosis (principal); K86.2 Cyst of pancreas; I10 Essential (primary) hypertension; N17.9 Acute kidney failure, unspecified; E78.5 Hyperlipidemia, unspecified; Z86.16 Personal history of COVID-19; D64.9 Anemia, unspecified; I69.334 Monoplegia of upper limb following cerebral infarction affecting left non-dominant side; R93.89 Abnormal findings on diagnostic imaging of other specified body structures; E07.89 Other specified disorders of thyroid
CPT/HCPCS: 36415; 71275-TC; 74176-TC; 76000-TC-FY; 76775-TC; 80048; 80053; 81003; 82550; 82553; 83735; 84100; 85025; 85027; 85610; 85730; 86850; 86900; 86901; 87086; 87186; 93005; 93010; 93306-TC; 94010; 94760; 99285-25; C1747; C1769; C2617; C9803-CS; Q9967; U0003; U0005

== ENCOUNTER 2022-04-02 04:16 | Day surgery (SDC) | payer BC, OTHER ==
[2022-03-28 17:04] VITALS: BMI 24.5
[2022-04-02] MEDS ORDERED: PROPOFOL 20 ML ONE (12:42)
[2022-04-02] MEDS ORDERED: MIDAZOLAM HCL 2 MG/2 ML SINGLE DOSE VIAL ONE (12:42)
[2022-04-02] MEDS ORDERED: ceFAZolin SODIUM 1 GM VIAL IVPB ONE (13:08)
[2022-04-02 15:17] VITALS: RESP 18
[2022-04-02 15:20] VITALS: BP 114/77; PULSE 65; TEMP 97.8
== END 2022-04-02 14:52 | disposition home or self-care (01) ==
LOC: JASU-SURG 04:16
PROVIDERS: ATTEND Urology
PROC: 0TF7XZZ Fragmentation in Left Ureter, External Approach (ICD-10-PCS; principal; 2022-04-02 13:00)
DX: N20.1 Calculus of ureter (principal)